=== PATIENT | male | born 1965 | race Caucasian/White ===

== ENCOUNTER 2021-04-02 12:16 | Inpatient (IN) ==
[2021-04-02] MEDS ORDERED: CIPRO IV 400 MG PREMIX* 400 MG/200 ML IV.SOLN. IV SCH (13:00)
[2021-04-02] MEDS ORDERED: NS 1000 ML 1,000 ML IV SCH (13:00)
[2021-04-02 13:14] LABS: BASOPHILS # (AUTO) 0.1 X10^3/uL (0.0-0.1); BASOPHILS % (AUTO) 0.4 % (0.2-1.0); EOSINOPHILS # (AUTO) 0.3 x10^3/uL (0.0-0.2); EOSINOPHILS % (AUTO) 1.3 % (0.9-2.9); HEMATOCRIT 42.2 % (42.0-54.0); HEMOGLOBIN 14.6 g/dL (13.5-18.0); LYMPHOCYTES # (AUTO) 2.5 X10^3/uL (1.3-2.9); LYMPHOCYTES % (AUTO) 12.3 % (21.0-51.0); MEAN CORPUSCULAR HEMOGLOBIN 30.6 pg (27.0-34.0); MEAN CORPUSCULAR HGB CONC 34.5 g/dL (33.0-35.0); MEAN CORPUSCULAR VOLUME 88.6 fL (80.0-100.0); MEAN PLATELET VOLUME 6.9 fL (7.4-11.0); MONOCYTES # (AUTO) 1.9 x10^3/uL (0.3-0.8); MONOCYTES % (AUTO) 9.4 % (0.0-13.0); NEUTROPHILS # (AUTO) 15.3 x10^3/uL (2.2-4.8); NEUTROPHILS % (AUTO) 76.6 % (42.0-75.0); PLATELET COUNT 312 X10^3/uL (150.0-450.0); RED BLOOD COUNT 4.76 X10^6/uL (4.7-6.0); RED CELL DISTRIBUTION WIDTH 13.3 % (11.6-16.5)
[2021-04-02 13:36] LABS: ALANINE AMINOTRANSFERASE 30 Units/L (12-78); ALBUMIN 2.9 g/dL (3.4-5.0); ALKALINE PHOSPHATASE 77 Units/L (46-116); ASPARTATE AMINO TRANSFERASE 16 Units/L (15-37); BLOOD UREA NITROGEN 16 mg/dL (7-18); CALCIUM 8.9 mg/dL (8.5-10.1); CHLORIDE 107 mmol/L (98-107); COR CA(FOR HYPOALB) 9.8 mg/dL (8.5-10.1); SODIUM 146 mmol/L (136-145); TOTAL PROTEIN 7.7 g/dL (6.4-8.2); eGFR NON BLACK RACES > 60 (>60)
[2021-04-02] MEDS: FLAGYL IV PREMIX 500 MG BAG 500 MG/100 ML BAG IV SCH ×2 (15:10→16:33)
--- NOTE | 2021-04-02 15:41 | RAD ---
HISTORYPRE-OP ABDOMINAL ABCESS, throat cancerSTUDYCHEST x-ray, 1 VIEWCOMPARISONNoneFINDINGSThe trachea is midline. The cardiac silhouette is unremarkable. No mediastinal widening.Mild bibasilar atelectasis is seen no pneumothorax or pleural effusion is seen.No acute bony abnormality is seen.IMPRESSIONMild bibasilar atelectasis.Electronically signed by: Davis Gonzalez (Apr 02, 2021 15:39:54)
[2021-04-02] MEDS: DILAUDID INJ IVP PRN ×2 (15:46→21:50)
[2021-04-02] MEDS: OFIRMEV IV 1000 MG VIAL 1,000 MG/100 ML VIAL IV PRN (15:50)
[2021-04-02] MEDS ORDERED: ZOSYN VIAL 3.375 GRAMS 3.375 G in NS 100 ML IV + SPIKE MINIBAG* 100 ML IV SCH ×2 (17:00→21:00)
[2021-04-02 17:48] VITALS: BMI 29.9
[2021-04-02] MEDS: D5 1/2 NS 1000 ML 1,000 ML IV SCH (18:56)
[2021-04-03] MEDS: FLAGYL IV PREMIX 500 MG BAG 500 MG/100 ML BAG IV SCH ×3 (01:59→17:00)
[2021-04-03] MEDS: DILAUDID INJ IVP PRN ×3 (02:50→12:30)
[2021-04-03] MEDS: OFIRMEV IV 1000 MG VIAL 1,000 MG/100 ML VIAL IV PRN (03:03)
[2021-04-03] MEDS: D5 1/2 NS 1000 ML 1,000 ML IV SCH ×2 (06:05→19:00)
[2021-04-03 06:21] LABS: BASOPHILS # (AUTO) 0.1 X10^3/uL (0.0-0.1); BASOPHILS % (AUTO) 0.4 % (0.2-1.0); EOSINOPHILS # (AUTO) 0.4 x10^3/uL (0.0-0.2); EOSINOPHILS % (AUTO) 2.2 % (0.9-2.9); HEMATOCRIT 40.6 % (42.0-54.0); HEMOGLOBIN 13.9 g/dL (13.5-18.0); LYMPHOCYTES % (AUTO) 10.8 % (21.0-51.0); MEAN CORPUSCULAR HEMOGLOBIN 30.6 pg (27.0-34.0); MEAN CORPUSCULAR HGB CONC 34.3 g/dL (33.0-35.0); MEAN CORPUSCULAR VOLUME 89.2 fL (80.0-100.0); MEAN PLATELET VOLUME 6.9 fL (7.4-11.0); MONOCYTES # (AUTO) 2.3 x10^3/uL (0.3-0.8); MONOCYTES % (AUTO) 12.6 % (0.0-13.0); NEUTROPHILS # (AUTO) 13.5 x10^3/uL (2.2-4.8); PLATELET COUNT 295 X10^3/uL (150.0-450.0); RED BLOOD COUNT 4.55 X10^6/uL (4.7-6.0); RED CELL DISTRIBUTION WIDTH 12.9 % (11.6-16.5); WHITE BLOOD COUNT 18.2 X10^3/uL (3.6-10.0)
[2021-04-03 06:39] LABS: ALANINE AMINOTRANSFERASE 19 Units/L (12-78); ALBUMIN 2.2 g/dL (3.4-5.0); ALKALINE PHOSPHATASE 74 Units/L (46-116); ASPARTATE AMINO TRANSFERASE 11 Units/L (15-37); BLOOD UREA NITROGEN 19 mg/dL (7-18); CALCIUM 8.4 mg/dL (8.5-10.1); CARBON DIOXIDE 29.4 mmol/L (21-32); CHLORIDE 106 mmol/L (98-107); COR CA(FOR HYPOALB) 9.8 mg/dL (8.5-10.1); COR NA(FOR HYPERGLY) 143 mmol/L (136-145); CREATININE 1.09 mg/dL (0.70-1.30); SODIUM 143 mmol/L (136-145); TOTAL PROTEIN 6.4 g/dL (6.4-8.2); eGFR NON BLACK RACES > 60 (>60)
[2021-04-03] MEDS ORDERED: MICRO K EXTEN CAP 10 MEQ PO PRN (06:42)
[2021-04-03] MEDS ORDERED: POTASSIUM CHL 60 MEQ/NS 0.45% 500 ML IV PRN (06:42)
[2021-04-03] MEDS ORDERED: POTASSIUM CHLORIDE LIQ 20 MEQ UDC PO PRN (06:42)
[2021-04-03] MEDS ORDERED: KLOR-CON PO PRN (06:42)
[2021-04-03] MEDS ORDERED: K-RIDER 10 MEQ/NS 100 ML 10 MEQ/100 ML BAG IV PRN (06:42)
[2021-04-03] MEDS ORDERED: K-DUR TAB 20 MEQ PO PRN (06:42)
[2021-04-03] MEDS ORDERED: NS 100 ML IV 100 ML ONE (11:11)
[2021-04-03] MEDS: ZOSYN VIAL 3.375 GRAMS 3.375 G in NS 100 ML IV + SPIKE MINIBAG* 100 ML IV SCH ×2 (11:31→22:04)
[2021-04-03] MEDS: POTASSIUM CHL 40 MEQ/NS 0.45% 500 ML IV PRN (11:33)
--- NOTE | 2021-04-03 12:25 | DR.UPDATE ---
H&P Update History and Physical Update: History and Physical reviewed and patient examined. Changes noted: NO Yes with the following: WAS A DIRECT ADMISSION TO THE HOSPITAL. HE PRESENTED TO THE OFFICE WITH COMPLAINTS OF ABDOMINAL PAIN AND FEVER. AN ABDOMEN/PELVIS CT WITH CONTRAST WAS OBTAINED AND REVEALED: Moderate-sized gas and fluid collection within the left lower quadrant measuring 4.5 x 5.8 x 3.4 cm is consistent with an abscess. Source of abscess is presumed to represent perforated diverticulitis given the sigmoid colonic bowel wall thickening and diverticular disease. Moderate inflammatory change and non- localizing free fluid within the lower abdomen and pelvis with circumferential bowel wall thickening of adjacent loops of distal small bowel is most consistent with peritonitis and reactive inflammatory change of the small bowel. No evidence of obstruction. Surgical consultation is needed. 1.4 cm hypoattenuating lesion within the left hepatic lobe has imaging features most consistent with a hemangioma. ON ARRIVAL TO THE HOSPITAL, HIS VITALS WERE 101.5-80-20-98%-139/78. LABS WERE OBTAINED. ABNORMAL LAB VALUES INCLUDE THE FOLLOWING: WBC 20.0, SODIUM 146, CARBON DIOXIDE 33.0, ALBUMIN 2.9, GLOBULIN 4.8. COVID, INFLUENZA, RSV NEGATIVE. BLOOD CULTURES WERE SET UP. A CHEST XRAY WAS OBTAINED AND REVEALED: MILD BIBASILAR ATELECTASIS. EKG REVEALED: SINUS RHYTHM WITH HR 73. HE WAS STARTED ON D51/2NS AT 50 ML/HR, ZOSYN 3.375G IV TID, FLAGYL 500MG IV Q8H, TYLENOL IV Q6H PRN, DILAUDID 1MG IV Q4H PRN, ZOFRAN 4MG IV Q4H PRN, PROTONIX 40MG IV BID, THE POTASSIUM AND MAGNESIUM PROTOCOLS. HIS HOME MEDICATIONS OF SYNTHROID, ANTIVERT, SINGULAIR, AND CRESTOR WERE RESUMED. WE WILL CONSULTED WITH , GENERAL SURGEON. HE RECOMMENDED TO TREAT WITH ANTIBIOTICS AND REPEAT THE CT ON FRIDAY. WE ARE IN AGREEMENT WITH PLANS. OTHERWISE, WE PLAN TO FOLLOW UP WITH AM LABS AND CONTINUE TO MONITOR. TIME SPENT ON CLINICAL ASSESSMENT, REVIEWING LABS AND IMAGING, DECISION MAKING, AND DOCUMENTATION GREATER THAN 75 MINUTES. H&P Reviewed: Yes Patient was examined?: Yes
[2021-04-03] MEDS: PROTONIX INJ 40 MG VIAL IVP SCH ×2 (12:30→20:53)
[2021-04-03] MEDS: SYNTHROID 112 mcg TAB PO SCH (14:19)
[2021-04-03] MEDS: SINGULAIR TAB 10 MG PO SCH (14:20)
--- NOTE | 2021-04-03 14:39 | DR.PROGNOT ---
Hospital Progress Notes - Progress Note for Day of: Progress Note Date: 04/03/21 - Chief Complaint Chief Complaint: slight improvement of abdomial pain . had low grade fever last night . no N,V ..no BM but passing flatus .. WBC is 18,2 - Past Medical Family Social History Past Med/Fam/Surg Hx: No changes since H&P Allergies: Allergies No Known Drug Allergies Allergy (Verified 04/02/21 15:22) - Review Of Systems ROS: No change since H&P - Vital Signs Vital Signs: Temperature 99.1 F Pulse Rate [Left Radial] 65 Respiratory Rate 20 Blood Pressure [Left Arm] 121/64 Blood Pressure 143/82 O2 Sat by Pulse Oximetry 98 - Physical Exam Oriented: Normal Eyes: Normal Ear: Normal Nose: Normal Throat: Normal Respiratory: Normal Cardiovascular: Normal GI:Auscultation: Normal GI:Palpation: Normal GI: Tenderness: Diffuse, LLQ (diffuse tenderness more around the LLQ with mild rebound .. BS hypoactive ..) Speech Pattern: Clear, Appropriate - Laboratory and Diagnostics Result Diagrams: 04/03/21 05:43 04/03/21 05:43 Labs: Laboratory WBC 18.2 X10^3/uL (3.6-10.0) H 04/03/21 05:43 RBC 4.55 X10^6/uL (4.7-6.0) L 04/03/21 05:43 Hgb 13.9 g/dL (13.5-18.0) 04/03/21 05:43 Hct 40.6 % (42.0-54.0) L 04/03/21 05:43 MCV 89.2 fL (80.0-100.0) 04/03/21 05:43 MCH 30.6 pg (27.0-34.0) 04/03/21 05:43 MCHC 34.3 g/dL (33.0-35.0) 04/03/21 05:43 RDW 12.9 % (11.6-16.5) 04/03/21 05:43 Plt Count 295 X10^3/uL (150.0-450.0) 04/03/21 05:43 MPV 6.9 fL (7.4-11.0) L 04/03/21 05:43 Neut % (Auto) 74.0 % (42.0-75.0) 04/03/21 05:43 Lymph % (Auto) 10.8 % (21.0-51.0) L 04/03/21 05:43 [place] % (Auto) 12.6 % (0.0-13.0) 04/03/21 05:43 Eos % (Auto) 2.2 % (0.9-2.9) 04/03/21 05:43 Baso % (Auto) 0.4 % (0.2-1.0) 04/03/21 05:43 Neut # (Auto) 13.5 x10^3/uL (2.2-4.8) H 04/03/21 05:43 Lymph # (Auto) 2.0 X10^3/uL (1.3-2.9) 04/03/21 05:43 [place] # (Auto) 2.3 x10^3/uL (0.3-0.8) H 04/03/21 05:43 Eos # (Auto) 0.4 x10^3/uL (0.0-0.2) H 04/03/21 05:43 Baso # (Auto) 0.1 X10^3/uL (0.0-0.1) 04/03/21 05:43 Absolute Nucleated RBC 0.1 /100WBC 04/03/21 05:43 PT 15.4 SECONDS (11.8-14.3) 04/02/21 18:10 INR Target Range - 04/02/21 18:10 INR 1.28 (0.8-1.3) 04/02/21 18:10 APTT 31.8 SECONDS (22.9-36.5) 04/02/21 18:10 PTT Comment - 04/02/21 18:10 Sodium 143 mmol/L (136-145) 04/03/21 05:43 Corrected Sodium 143 mmol/L (136-145) 04/03/21 05:43 Potassium 3.3 mmol/L (3.5-5.1) L 04/03/21 05:43 Chloride 106 mmol/L (98-107) 04/03/21 05:43 Carbon Dioxide 29.4 mmol/L (21-32) 04/03/21 05:43 BUN 19 mg/dL (7-18) H 04/03/21 05:43 Creatinine 1.09 mg/dL (0.70-1.30) 04/03/21 05:43 Est GFR (MDRD) Af Amer > 60 (>60) 04/03/21 05:43 Est GFR (MDRD) Non-Af > 60 (>60) 04/03/21 05:43 Glucose 111 mg/dL (65-99) H 04/03/21 05:43 Calcium 8.4 mg/dL (8.5-10.1) L 04/03/21 05:43 Corrected Calcium 9.8 mg/dL (8.5-10.1) 04/03/21 05:43 Magnesium 2.1 mg/dL (1.7-2.9) 04/03/21 05:43 Total Bilirubin 0.70 mg/dL (0.2-1.0) 04/03/21 05:43 AST 11 Units/L (15-37) L 04/03/21 05:43 ALT 19 Units/L (12-78) 04/03/21 05:43 Alkaline Phosphatase 74 Units/L (46-116) 04/03/21 05:43 Total Protein 6.4 g/dL (6.4-8.2) 04/03/21 05:43 Albumin 2.2 g/dL (3.4-5.0) L 04/03/21 05:43 Globulin 4.2 g/dL (2.5-4.5) 04/03/21 05:43 Albumin/Globulin Ratio 0.5 Ratio (1.1-2.1) L 04/03/21 05:43 SARS-CoV-2 (PCR) Negative (NEGATIVE) 04/02/21 13:00 Influenza Type A (PCR) Negative (NEGATIVE) 04/02/21 13:00 Influenza Type B (PCR) Negative (NEGATIVE) 04/02/21 13:00 RSV (PCR) Negative (NEGATIVE) 04/02/21 13:00 - Assessment and Plan 1: acute diverticulitis with abscess LLQ . localezed peritonitis .. same IN ATB , IVF , NPO with ICE chips for now ..
[2021-04-03] MEDS: CRESTOR TAB 10 MG PO SCH (20:53)
[2021-04-03] MEDS: ANTIVERT TAB 25 MG PO SCH (20:53)
[2021-04-04] MEDS: FLAGYL IV PREMIX 500 MG BAG 500 MG/100 ML BAG IV SCH ×3 (00:33→17:15)
[2021-04-04] MEDS: ZOSYN VIAL 3.375 GRAMS 3.375 G in NS 100 ML IV + SPIKE MINIBAG* 100 ML IV SCH ×3 (05:44→21:02)
[2021-04-04] MEDS: D5 1/2 NS 1000 ML 1,000 ML IV SCH ×3 (06:11→20:58)
[2021-04-04 06:44] LABS: BASOPHILS % (AUTO) 0.1 % (0.2-1.0); EOSINOPHILS % (AUTO) 0.2 % (0.9-2.9); HEMATOCRIT 42.3 % (42.0-54.0); HEMOGLOBIN 14.6 g/dL (13.5-18.0); LYMPHOCYTES # (AUTO) 1.7 X10^3/uL (1.3-2.9); LYMPHOCYTES % (AUTO) 9.4 % (21.0-51.0); MEAN CORPUSCULAR HEMOGLOBIN 30.5 pg (27.0-34.0); MEAN CORPUSCULAR HGB CONC 34.4 g/dL (33.0-35.0); MEAN CORPUSCULAR VOLUME 88.4 fL (80.0-100.0); MEAN PLATELET VOLUME 7.1 fL (7.4-11.0); MONOCYTES # (AUTO) 1.4 x10^3/uL (0.3-0.8); MONOCYTES % (AUTO) 7.6 % (0.0-13.0); NEUTROPHILS # (AUTO) 15.3 x10^3/uL (2.2-4.8); NEUTROPHILS % (AUTO) 82.7 % (42.0-75.0); PLATELET COUNT 321 X10^3/uL (150.0-450.0); RED BLOOD COUNT 4.79 X10^6/uL (4.7-6.0); RED CELL DISTRIBUTION WIDTH 12.9 % (11.6-16.5); WHITE BLOOD COUNT 18.5 X10^3/uL (3.6-10.0)
[2021-04-04 07:10] LABS: ALANINE AMINOTRANSFERASE 21 Units/L (12-78); ALKALINE PHOSPHATASE 85 Units/L (46-116); ASPARTATE AMINO TRANSFERASE 14 Units/L (15-37); BLOOD UREA NITROGEN 23 mg/dL (7-18); CALCIUM 9.2 mg/dL (8.5-10.1); CHLORIDE 108 mmol/L (98-107); COR NA(FOR HYPERGLY) 145 mmol/L (136-145); CREATININE 0.95 mg/dL (0.70-1.30); SODIUM 144 mmol/L (136-145); TOTAL PROTEIN 6.7 g/dL (6.4-8.2); eGFR NON BLACK RACES > 60 (>60)
[2021-04-04 07:25] LABS: ALBUMIN 1.8 g/dL (3.4-5.0)
[2021-04-04] MEDS: SYNTHROID 112 mcg TAB PO SCH (08:44)
[2021-04-04] MEDS: PROTONIX INJ 40 MG VIAL IVP SCH ×2 (08:44→20:58)
[2021-04-04] MEDS: SINGULAIR TAB 10 MG PO SCH (08:44)
--- NOTE | 2021-04-04 10:34 | DR.PROGNOT ---
Hospital Progress Notes - Progress Note for Day of: Progress Note Date: 04/04/21 - Chief Complaint Chief Complaint: comfortable today with moderate Lt side abdominal pain .. no nausea or vomiting ... no bowel movement. WBC 18.5.. BUN 23 /0.9.. Albumin 1.8 . temp 97.4 - Past Medical Family Social History Past Med/Fam/Surg Hx: No changes since H&P Allergies: Allergies No Known Drug Allergies Allergy (Verified 04/02/21 15:22) - Review Of Systems ROS: No change since H&P - Vital Signs Vital Signs: Temperature 97.4 F Pulse Rate [Left Radial] 50 Pulse Rate 74 Respiratory Rate 18 Blood Pressure [Right Arm] 128/72 Blood Pressure [Left Arm] 119/72 Blood Pressure 143/82 O2 Sat by Pulse Oximetry 96 - Physical Exam Oriented: Normal Eyes: Normal Ear: Normal Nose: Normal Throat: Normal Respiratory: Normal Cardiovascular: Normal GI:Auscultation: Normal GI: Tenderness: Diffuse, LLQ (diffuse tenderness more around the LLQ with mild rebound .. BS hypoactive ..) Speech Pattern: Clear, Appropriate - Laboratory and Diagnostics Result Diagrams: 04/04/21 05:40 04/04/21 05:40 Labs: Laboratory WBC 18.5 X10^3/uL (3.6-10.0) H 04/04/21 05:40 RBC 4.79 X10^6/uL (4.7-6.0) 04/04/21 05:40 Hgb 14.6 g/dL (13.5-18.0) 04/04/21 05:40 Hct 42.3 % (42.0-54.0) 04/04/21 05:40 MCV 88.4 fL (80.0-100.0) 04/04/21 05:40 MCH 30.5 pg (27.0-34.0) 04/04/21 05:40 MCHC 34.4 g/dL (33.0-35.0) 04/04/21 05:40 RDW 12.9 % (11.6-16.5) 04/04/21 05:40 Plt Count 321 X10^3/uL (150.0-450.0) 04/04/21 05:40 MPV 7.1 fL (7.4-11.0) L 04/04/21 05:40 Neut % (Auto) 82.7 % (42.0-75.0) H 04/04/21 05:40 Lymph % (Auto) 9.4 % (21.0-51.0) L 04/04/21 05:40 [place] % (Auto) 7.6 % (0.0-13.0) 04/04/21 05:40 Eos % (Auto) 0.2 % (0.9-2.9) L 04/04/21 05:40 Baso % (Auto) 0.1 % (0.2-1.0) L 04/04/21 05:40 Neut # (Auto) 15.3 x10^3/uL (2.2-4.8) H 04/04/21 05:40 Lymph # (Auto) 1.7 X10^3/uL (1.3-2.9) 04/04/21 05:40 [place] # (Auto) 1.4 x10^3/uL (0.3-0.8) H 04/04/21 05:40 Eos # (Auto) 0.0 x10^3/uL (0.0-0.2) 04/04/21 05:40 Baso # (Auto) 0.0 X10^3/uL (0.0-0.1) 04/04/21 05:40 Absolute Nucleated RBC 0.1 /100WBC 04/04/21 05:40 PT 15.4 SECONDS (11.8-14.3) 04/02/21 18:10 INR Target Range - 04/02/21 18:10 INR 1.28 (0.8-1.3) 04/02/21 18:10 APTT 31.8 SECONDS (22.9-36.5) 04/02/21 18:10 PTT Comment - 04/02/21 18:10 Sodium 144 mmol/L (136-145) 04/04/21 05:40 Corrected Sodium 145 mmol/L (136-145) 04/04/21 05:40 Potassium 4.8 mmol/L (3.5-5.1) 04/04/21 05:40 Chloride 108 mmol/L (98-107) H 04/04/21 05:40 Carbon Dioxide 28.0 mmol/L (21-32) 04/04/21 05:40 BUN 23 mg/dL (7-18) H 04/04/21 05:40 Creatinine 0.95 mg/dL (0.70-1.30) 04/04/21 05:40 Est GFR (MDRD) Af Amer > 60 (>60) 04/04/21 05:40 Est GFR (MDRD) Non-Af > 60 (>60) 04/04/21 05:40 Glucose 144 mg/dL (65-99) H 04/04/21 05:40 Calcium 9.2 mg/dL (8.5-10.1) 04/04/21 05:40 Corrected Calcium 11.0 mg/dL (8.5-10.1) H 04/04/21 05:40 Magnesium 2.1 mg/dL (1.7-2.9) 04/03/21 05:43 Total Bilirubin 0.40 mg/dL (0.2-1.0) 04/04/21 05:40 AST 14 Units/L (15-37) L 04/04/21 05:40 ALT 21 Units/L (12-78) 04/04/21 05:40 Alkaline Phosphatase 85 Units/L (46-116) 04/04/21 05:40 Total Protein 6.7 g/dL (6.4-8.2) 04/04/21 05:40 Albumin 1.8 g/dL (3.4-5.0) L 04/04/21 05:40 Globulin 4.9 g/dL (2.5-4.5) H 04/04/21 05:40 Albumin/Globulin Ratio 0.4 Ratio (1.1-2.1) L 04/04/21 05:40 SARS-CoV-2 (PCR) Negative (NEGATIVE) 04/02/21 13:00 Influenza Type A (PCR) Negative (NEGATIVE) 04/02/21 13:00 Influenza Type B (PCR) Negative (NEGATIVE) 04/02/21 13:00 RSV (PCR) Negative (NEGATIVE) 04/02/21 13:00 - Assessment and Plan 1: improving acute sigmoid diverticulitis with abscess LLQ . localezed peritonitis .. same IN ATB , IVF , NPO with ICE chips for now .. abdominal CT with . in Am
[2021-04-04] MEDS: CRESTOR TAB 10 MG PO SCH (20:58)
[2021-04-04] MEDS: ANTIVERT TAB 25 MG PO SCH (20:58)
[2021-04-04] MEDS: DILAUDID INJ IVP PRN (22:33)
[2021-04-05] MEDS: FLAGYL IV PREMIX 500 MG BAG 500 MG/100 ML BAG IV SCH ×3 (00:43→16:52)
[2021-04-05] MEDS: D5 1/2 NS 1000 ML 1,000 ML IV SCH (04:53)
[2021-04-05] MEDS: ZOSYN VIAL 3.375 GRAMS 3.375 G in NS 100 ML IV + SPIKE MINIBAG* 100 ML IV SCH (05:56)
[2021-04-05 06:51] LABS: BASOPHILS % (AUTO) 0.2 % (0.2-1.0); EOSINOPHILS # (AUTO) 0.3 x10^3/uL (0.0-0.2); EOSINOPHILS % (AUTO) 1.7 % (0.9-2.9); HEMATOCRIT 40.5 % (42.0-54.0); HEMOGLOBIN 13.8 g/dL (13.5-18.0); LYMPHOCYTES % (AUTO) 11.7 % (21.0-51.0); MEAN CORPUSCULAR HEMOGLOBIN 30.4 pg (27.0-34.0); MEAN CORPUSCULAR HGB CONC 34.1 g/dL (33.0-35.0); MEAN CORPUSCULAR VOLUME 89.2 fL (80.0-100.0); MONOCYTES # (AUTO) 1.8 x10^3/uL (0.3-0.8); MONOCYTES % (AUTO) 10.3 % (0.0-13.0); NEUTROPHILS # (AUTO) 13.1 x10^3/uL (2.2-4.8); NEUTROPHILS % (AUTO) 76.1 % (42.0-75.0); PLATELET COUNT 345 X10^3/uL (150.0-450.0); RED BLOOD COUNT 4.54 X10^6/uL (4.7-6.0); RED CELL DISTRIBUTION WIDTH 12.9 % (11.6-16.5); WHITE BLOOD COUNT 17.2 X10^3/uL (3.6-10.0)
[2021-04-05 07:11] LABS: ALANINE AMINOTRANSFERASE 20 Units/L (12-78); ALBUMIN 2.1 g/dL (3.4-5.0); ALKALINE PHOSPHATASE 96 Units/L (46-116); ASPARTATE AMINO TRANSFERASE 17 Units/L (15-37); BLOOD UREA NITROGEN 24 mg/dL (7-18); CALCIUM 8.3 mg/dL (8.5-10.1); CARBON DIOXIDE 29.9 mmol/L (21-32); CHLORIDE 108 mmol/L (98-107); COR CA(FOR HYPOALB) 9.8 mg/dL (8.5-10.1); SODIUM 144 mmol/L (136-145); TOTAL PROTEIN 6.1 g/dL (6.4-8.2); eGFR NON BLACK RACES > 60 (>60)
--- NOTE | 2021-04-05 08:53 | CT ---
HISTORYfollow up abscess throat cancerSTUDYABDOMEN/PELVIS WITH CONCOMPARISONCT abdomen and pelvis 04/02/2021TECHNIQUEMultiple CT axial images of the abdomen and pelvis were obtained with IV contrast. Coronal and sagittal images were reconstructed. Dose reduction techniques included Automated Exposure Control (AEC) and adjustment of mA and kV.FINDINGSGas fluid collection in lower midline and left abdomen is not significantly changed in size measuring about 5.5 cm in longest dimension. Surrounding edema indicates inflammation. The edema has increased.Wall thickening is noted in the adjacent bowel, including the sigmoid colon and the small bowel.A smaller fluid collection is noted in the mesentery of the small bowel and measures about 15 mm. This was also present on the prior study.Trace amount of free fluid in posterior pelvis. No pneumoperitoneum.There is no bowel obstruction. No hydronephrosis. No liver abscess.IMPRESSION1. Stable size anterior pelvic abscess and small mesenteric abscess2. More surrounding edema with secondary wall thickening in the sigmoid colon and small bowel3. No pneumoperitoneum or bowel obstructionElectronically signed by: Franc Garcia (Apr 05, 2021 08:50:24)
[2021-04-05] MEDS: PROTONIX INJ 40 MG VIAL IVP SCH ×2 (09:08→21:03)
[2021-04-05] MEDS: SINGULAIR TAB 10 MG PO SCH (09:08)
[2021-04-05] MEDS: SYNTHROID 112 mcg TAB PO SCH (09:08)
--- NOTE | 2021-04-05 10:15 | DR.PROGNOT ---
Hospital Progress Notes - Progress Note for Day of: Progress Note Date: 04/05/21 - Chief Complaint Chief Complaint: moderate Lt side abdominal pain .. no nausea or vomiting ... had small BM today . CT showed same stable 5 cm abscess with some edema of bowel patel. WBC 17.5.. BUN 24 /1.1.. Albumin 2 . temp 99.1 - Past Medical Family Social History Past Med/Fam/Surg Hx: No changes since H&P Allergies: Allergies No Known Drug Allergies Allergy (Verified 04/02/21 15:22) - Review Of Systems ROS: No change since H&P - Vital Signs Vital Signs: Temperature 99.1 F Pulse Rate [Left Radial] 70 Pulse Rate 74 Respiratory Rate 20 Blood Pressure [Right Arm] 137/76 Blood Pressure [Left Arm] 129/68 Blood Pressure 143/82 O2 Sat by Pulse Oximetry 94 - Physical Exam Oriented: Normal Eyes: Normal Ear: Normal Nose: Normal Throat: Normal Respiratory: Normal Cardiovascular: Normal GI:Auscultation: Normal GI:Palpation: Normal GI: Tenderness: Diffuse, LLQ (diffuse tenderness more around the LLQ with mild rebound .. BS hypoactive ..) Speech Pattern: Clear, Appropriate - Laboratory and Diagnostics Result Diagrams: 04/05/21 06:00 04/05/21 06:00 Labs: 04/02/21 13:02 Blood Blood Culture - Preliminary 04/02/21 12:50 Blood Blood Culture - Preliminary Laboratory WBC 17.2 X10^3/uL (3.6-10.0) H 04/05/21 06:00 RBC 4.54 X10^6/uL (4.7-6.0) L 04/05/21 06:00 Hgb 13.8 g/dL (13.5-18.0) 04/05/21 06:00 Hct 40.5 % (42.0-54.0) L 04/05/21 06:00 MCV 89.2 fL (80.0-100.0) 04/05/21 06:00 MCH 30.4 pg (27.0-34.0) 04/05/21 06:00 MCHC 34.1 g/dL (33.0-35.0) 04/05/21 06:00 RDW 12.9 % (11.6-16.5) 04/05/21 06:00 Plt Count 345 X10^3/uL (150.0-450.0) 04/05/21 06:00 MPV 7.0 fL (7.4-11.0) L 04/05/21 06:00 Neut % (Auto) 76.1 % (42.0-75.0) H 04/05/21 06:00 Lymph % (Auto) 11.7 % (21.0-51.0) L 04/05/21 06:00 [place] % (Auto) 10.3 % (0.0-13.0) 04/05/21 06:00 Eos % (Auto) 1.7 % (0.9-2.9) 04/05/21 06:00 Baso % (Auto) 0.2 % (0.2-1.0) 04/05/21 06:00 Neut # (Auto) 13.1 x10^3/uL (2.2-4.8) H 04/05/21 06:00 Lymph # (Auto) 2.0 X10^3/uL (1.3-2.9) 04/05/21 06:00 [place] # (Auto) 1.8 x10^3/uL (0.3-0.8) H 04/05/21 06:00 Eos # (Auto) 0.3 x10^3/uL (0.0-0.2) H 04/05/21 06:00 Baso # (Auto) 0.0 X10^3/uL (0.0-0.1) 04/05/21 06:00 Absolute Nucleated RBC 0.0 /100WBC 04/05/21 06:00 PT 15.4 SECONDS (11.8-14.3) 04/02/21 18:10 INR Target Range - 04/02/21 18:10 INR 1.28 (0.8-1.3) 04/02/21 18:10 APTT 31.8 SECONDS (22.9-36.5) 04/02/21 18:10 PTT Comment - 04/02/21 18:10 Sodium 144 mmol/L (136-145) 04/05/21 06:00 Corrected Sodium TNP 04/05/21 06:00 Potassium 3.7 mmol/L (3.5-5.1) 04/05/21 06:00 Chloride 108 mmol/L (98-107) H 04/05/21 06:00 Carbon Dioxide 29.9 mmol/L (21-32) 04/05/21 06:00 BUN 24 mg/dL (7-18) H 04/05/21 06:00 Creatinine 1.10 mg/dL (0.70-1.30) 04/05/21 06:00 Est GFR (MDRD) Af Amer > 60 (>60) 04/05/21 06:00 Est GFR (MDRD) Non-Af > 60 (>60) 04/05/21 06:00 Glucose 91 mg/dL (65-99) 04/05/21 06:00 Calcium 8.3 mg/dL (8.5-10.1) L 04/05/21 06:00 Corrected Calcium 9.8 mg/dL (8.5-10.1) 04/05/21 06:00 Magnesium 2.1 mg/dL (1.7-2.9) 04/03/21 05:43 Total Bilirubin 0.40 mg/dL (0.2-1.0) 04/05/21 06:00 AST 17 Units/L (15-37) 04/05/21 06:00 ALT 20 Units/L (12-78) 04/05/21 06:00 Alkaline Phosphatase 96 Units/L (46-116) 04/05/21 06:00 Total Protein 6.1 g/dL (6.4-8.2) L 04/05/21 06:00 Albumin 2.1 g/dL (3.4-5.0) L 04/05/21 06:00 Globulin 4.0 g/dL (2.5-4.5) 04/05/21 06:00 Albumin/Globulin Ratio 0.5 Ratio (1.1-2.1) L 04/05/21 06:00 SARS-CoV-2 (PCR) Negative (NEGATIVE) 04/02/21 13:00 Influenza Type A (PCR) Negative (NEGATIVE) 04/02/21 13:00 Influenza Type B (PCR) Negative (NEGATIVE) 04/02/21 13:00 RSV (PCR) Negative (NEGATIVE) 04/02/21 13:00 - Assessment and Plan 1: acute sigmoid diverticulitis with abscess LLQ . localezed peritonitis .. same IN ATB , IVF ,. on clear liquid ..
--- NOTE | 2021-04-05 12:09 | PCM.PROG ---
Progress Note - Progress Note for Day of Date of Exam: 04/04/21 - Subjective Subjective: WAS ADMITTED FOR TREATMENT OF AN ANTERIOR PELVIC ABSCESS. TODAY, HE IS ALERT AND ORIENTED, LYING IN BED ON MORNING ROUNDS. HE CONTINUES WITH COMPLAINTS OF LEFT LOWER QUADRANT PAIN. ON EXAMINATION, HEART IS REGULAR IN RATE AND RHYTHM. BILATERAL LUNGS ARE CLEAR TO AUSCULTATION. ABDOMEN IS ROUND, SOFT, AND NOTED WITH LEFT SIDED ABDOMINAL TENDERNESS. STAFF REPORTS THAT HE WAS AFEBRILE THROUGHOUT THE NIGHT. HIS VITALS THIS MORNING ARE: 97.9-60-18-97%-125/72. LABS WERE OBTAINED. ABNORMAL LAB VALUES INCLUDE THE FOLLOWING: WBC 18.5, CHLORIDE 108, BUN 23, GLUCOSE 144, AST 14, ALBUMIN 1.8, GLOBULIN 4.9. BLOOD CULTURES ARE PENDING. HE IS CURRENTLY RECEIVING D51/2NS AT 50 ML/HR, ZOSYN 3.375G IV TID, FLAGYL 500MG IV Q8H, TYLENOL IV Q6H PRN, DILAUDID 1MG IV Q4H PRN, ZOFRAN 4MG IV Q4H PRN, PROTONIX 40MG IV BID, THE POTASSIUM AND MAGNESIUM PROTOCOLS. HIS HOME MEDICATIONS OF SYNTHROID, ANTIVERT, SINGULAIR, AND CRESTOR WERE RESUMED. , GENERAL SURGEON IS FOLLOWING PATIENT AND RECOMMENDS TO CONTINUE WITH CURRENT PLAN OF CARE TODAY. WE WILL REPEAT AN ABDOMEN/PELVIS CT WITH CONTRAST IN THE MORNING. OTHERWISE, WE WILL FOLLOW UP WITH AM LABS AND CONTINUE TO MONITOR. TIME SPENT ON CLINICAL ASSESSMENT, REVIEWING LABS AND IMAGING, DECISION MAKING, AND DOCUMENTATION GREATER THAN 45 MINUTES. - Past Medical Family Social History Past Med/Fam/Surg Hx: No changes since H&P Allergies: Allergies No Known Drug Allergies Allergy (Verified 04/02/21 15:22) - Review of Systems ROS: No change since H&P - Vital Signs and I&O's Vital Signs: Temperature 99.1 F Pulse Rate [Left Radial] 70 Pulse Rate 74 Respiratory Rate 20 Blood Pressure [Right Arm] 137/76 Blood Pressure [Left Arm] 129/68 Blood Pressure 143/82 O2 Sat by Pulse Oximetry 94 Intake and Output: Intake & Output 04/03/21 04/04/21 04/05/21 04/06/21 11:59 11:59 11:59 11:59 Intake Total 1554 / 1554 1988 Output Total 125 / 125 Balance 1429 / 1429 1988 - Physical Exam Oriented: Normal Eyes: Normal Ear: Normal Nose: Normal Throat: Normal Respiratory: Normal Cardiovascular: Normal Auscultation: Bowel Sounds: Normal Tenderness: Diffuse, LLQ (diffuse tenderness more around the LLQ with mild rebound .. BS hypoactive ..) Skin: Normal Musculoskeletal: Normal Psychiatric: Normal Mood Description: Calm Affect: Normal Speech Pattern: Clear, Appropriate - Laboratory and Diagnostics Result Diagrams: 04/05/21 06:00 04/05/21 06:00 Labs: 04/02/21 13:02 Blood Blood Culture - Preliminary 04/02/21 12:50 Blood Blood Culture - Preliminary Laboratory WBC 17.2 X10^3/uL (3.6-10.0) H 04/05/21 06:00 RBC 4.54 X10^6/uL (4.7-6.0) L 04/05/21 06:00 Hgb 13.8 g/dL (13.5-18.0) 04/05/21 06:00 Hct 40.5 % (42.0-54.0) L 04/05/21 06:00 MCV 89.2 fL (80.0-100.0) 04/05/21 06:00 MCH 30.4 pg (27.0-34.0) 04/05/21 06:00 MCHC 34.1 g/dL (33.0-35.0) 04/05/21 06:00 RDW 12.9 % (11.6-16.5) 04/05/21 06:00 Plt Count 345 X10^3/uL (150.0-450.0) 04/05/21 06:00 MPV 7.0 fL (7.4-11.0) L 04/05/21 06:00 Neut % (Auto) 76.1 % (42.0-75.0) H 04/05/21 06:00 Lymph % (Auto) 11.7 % (21.0-51.0) L 04/05/21 06:00 [place] % (Auto) 10.3 % (0.0-13.0) 04/05/21 06:00 Eos % (Auto) 1.7 % (0.9-2.9) 04/05/21 06:00 Baso % (Auto) 0.2 % (0.2-1.0) 04/05/21 06:00 Neut # (Auto) 13.1 x10^3/uL (2.2-4.8) H 04/05/21 06:00 Lymph # (Auto) 2.0 X10^3/uL (1.3-2.9) 04/05/21 06:00 [place] # (Auto) 1.8 x10^3/uL (0.3-0.8) H 04/05/21 06:00 Eos # (Auto) 0.3 x10^3/uL (0.0-0.2) H 04/05/21 06:00 Baso # (Auto) 0.0 X10^3/uL (0.0-0.1) 04/05/21 06:00 Absolute Nucleated RBC 0.0 /100WBC 04/05/21 06:00 PT 15.4 SECONDS (11.8-14.3) 04/02/21 18:10 INR Target Range - 04/02/21 18:10 INR 1.28 (0.8-1.3) 04/02/21 18:10 APTT 31.8 SECONDS (22.9-36.5) 04/02/21 18:10 PTT Comment - 04/02/21 18:10 Sodium 144 mmol/L (136-145) 04/05/21 06:00 Corrected Sodium TNP 04/05/21 06:00 Potassium 3.7 mmol/L (3.5-5.1) 04/05/21 06:00 Chloride 108 mmol/L (98-107) H 04/05/21 06:00 Carbon Dioxide 29.9 mmol/L (21-32) 04/05/21 06:00 BUN 24 mg/dL (7-18) H 04/05/21 06:00 Creatinine 1.10 mg/dL (0.70-1.30) 04/05/21 06:00 Est GFR (MDRD) Af Amer > 60 (>60) 04/05/21 06:00 Est GFR (MDRD) Non-Af > 60 (>60) 04/05/21 06:00 Glucose 91 mg/dL (65-99) 04/05/21 06:00 Calcium 8.3 mg/dL (8.5-10.1) L 04/05/21 06:00 Corrected Calcium 9.8 mg/dL (8.5-10.1) 04/05/21 06:00 Magnesium 2.1 mg/dL (1.7-2.9) 04/03/21 05:43 Total Bilirubin 0.40 mg/dL (0.2-1.0) 04/05/21 06:00 AST 17 Units/L (15-37) 04/05/21 06:00 ALT 20 Units/L (12-78) 04/05/21 06:00 Alkaline Phosphatase 96 Units/L (46-116) 04/05/21 06:00 Total Protein 6.1 g/dL (6.4-8.2) L 04/05/21 06:00 Albumin 2.1 g/dL (3.4-5.0) L 04/05/21 06:00 Globulin 4.0 g/dL (2.5-4.5) 04/05/21 06:00 Albumin/Globulin Ratio 0.5 Ratio (1.1-2.1) L 04/05/21 06:00 SARS-CoV-2 (PCR) Negative (NEGATIVE) 04/02/21 13:00 Influenza Type A (PCR) Negative (NEGATIVE) 04/02/21 13:00 Influenza Type B (PCR) Negative (NEGATIVE) 04/02/21 13:00 RSV (PCR) Negative (NEGATIVE) 04/02/21 13:00 - Plan (1) Intra-abdominal abscess Status: Acute Plan: D51/2NS AT 50 ML/HR, ZOSYN 3.375G IV TID, FLAGYL 500MG IV Q8H, TYLENOL IV Q6H PRN, DILAUDID 1MG IV Q4H PRN, ZOFRAN 4MG IV Q4H PRN, PROTONIX 40MG IV BID, THE POTASSIUM AND MAGNESIUM PROTOCOLS. HIS HOME MEDICATIONS OF SYNTHROID, ANTIVERT, SINGULAIR, AND CRESTOR WERE RESUMED. REPEAT CT IN AM
--- NOTE | 2021-04-05 12:47 | PCM.PROG ---
Progress Note - Progress Note for Day of Date of Exam: 04/05/21 - Subjective Subjective: WAS ADMITTED FOR TREATMENT OF ACUTE SIGMOID DIVERTICULITIS AND AN ANTERIOR PELVIC ABSCESS. TODAY, HE IS ALERT AND ORIENTED, LYING IN BED ON MORNING ROUNDS. HE CONTINUES WITH COMPLAINTS OF LEFT LOWER QUADRANT PAIN. ON EXAMINATION, HEART IS REGULAR IN RATE AND RHYTHM. BILATERAL LUNGS ARE CLEAR TO AUSCULTATION. ABDOMEN IS ROUND, SOFT, AND NOTED WITH LEFT SIDED ABDOMINAL TENDERNESS. STAFF REPORTS THAT HE WAS AFEBRILE THROUGHOUT THE NIGHT. HIS VITALS THIS MORNING ARE: 99.1-70-20-94%-129/68. LABS WERE OBTAINED. ABNORMAL LAB VALUES INCLUDE THE FOLLOWING: WBC 17.2, RBC 4.54, HCT 40.5, CHLORIDE 108, BUN 24, CALCIUM 8.3, TOTAL PROTEIN 6.1, ALBUMIN 2.1. BLOOD CULTURES ARE PENDING. ABDOMEN/PELVIS CT WITH CONTRAST WAS REPEATED THIS MORNING AND REVEALED: 1. Stable size anterior pelvic abscess and small mesenteric abscess 2. More surrounding edema with secondary wall thickening in the sigmoid colon and small bowel 3. No pneumoperitoneum or bowel obstruction. HE IS CURRENTLY RECEIVING D51/2NS AT 50 ML/HR, ZOSYN 3.375G IV TID, FLAGYL 500MG IV Q8H, TYLENOL IV Q6H PRN, DILAUDID 1MG IV Q4H PRN, ZOFRAN 4MG IV Q4H PRN, PROTONIX 40MG IV BID, THE POTASSIUM AND MAGNESIUM PROTOCOLS. HIS HOME MEDICATIONS OF SYNTHROID, ANTIVERT, SINGULAIR, AND CRESTOR WERE RESUMED. , GENERAL SURGEON IS FOLLOWING PATIENT AND RECOMMENDS TO CONTINUE WITH CURRENT PLAN OF CARE TODAY. WE WILL INCREASE HIS ZOSYN TO 4.5G IV TID. OTHERWISE, WE WILL FOLLOW UP WITH AM LABS AND CONTINUE TO MONITOR. TIME SPENT ON CLINICAL ASSESSMENT, REVIEWING LABS AND IMAGING, DECISION MAKING, AND DOCUMENTATION GREATER THAN 45 MINUTES. - Past Medical Family Social History Past Med/Fam/Surg Hx: No changes since H&P Allergies: Allergies No Known Drug Allergies Allergy (Verified 04/02/21 15:22) - Review of Systems ROS: No change since H&P - Vital Signs and I&O's Vital Signs: Temperature 98.0 F Pulse Rate [Left Radial] 80 Pulse Rate 74 Respiratory Rate 20 Blood Pressure [Right Arm] 137/76 Blood Pressure [Left Arm] 120/62 Blood Pressure 143/82 O2 Sat by Pulse Oximetry 98 Intake and Output: Intake & Output 04/03/21 04/04/21 04/05/21 04/06/21 11:59 11:59 11:59 11:59 Intake Total 1554 / 1554 1988 Output Total 125 / 125 Balance 1429 / 1429 1988 - Physical Exam Oriented: Normal Eyes: Normal Ear: Normal Nose: Normal Throat: Normal Respiratory: Normal Cardiovascular: Normal : Normal Auscultation: Bowel Sounds: Normal Palpation: Normal Tenderness: Diffuse, LLQ (diffuse tenderness more around the LLQ with mild rebound .. BS hypoactive ..) Skin: Normal Musculoskeletal: Normal Psychiatric: Normal Mood Description: Calm Affect: Normal Speech Pattern: Clear, Appropriate - Laboratory and Diagnostics Result Diagrams: 04/05/21 06:00 04/05/21 06:00 Labs: 04/02/21 13:02 Blood Blood Culture - Preliminary 04/02/21 12:50 Blood Blood Culture - Preliminary Laboratory WBC 17.2 X10^3/uL (3.6-10.0) H 04/05/21 06:00 RBC 4.54 X10^6/uL (4.7-6.0) L 04/05/21 06:00 Hgb 13.8 g/dL (13.5-18.0) 04/05/21 06:00 Hct 40.5 % (42.0-54.0) L 04/05/21 06:00 MCV 89.2 fL (80.0-100.0) 04/05/21 06:00 MCH 30.4 pg (27.0-34.0) 04/05/21 06:00 MCHC 34.1 g/dL (33.0-35.0) 04/05/21 06:00 RDW 12.9 % (11.6-16.5) 04/05/21 06:00 Plt Count 345 X10^3/uL (150.0-450.0) 04/05/21 06:00 MPV 7.0 fL (7.4-11.0) L 04/05/21 06:00 Neut % (Auto) 76.1 % (42.0-75.0) H 04/05/21 06:00 Lymph % (Auto) 11.7 % (21.0-51.0) L 04/05/21 06:00 [place] % (Auto) 10.3 % (0.0-13.0) 04/05/21 06:00 Eos % (Auto) 1.7 % (0.9-2.9) 04/05/21 06:00 Baso % (Auto) 0.2 % (0.2-1.0) 04/05/21 06:00 Neut # (Auto) 13.1 x10^3/uL (2.2-4.8) H 04/05/21 06:00 Lymph # (Auto) 2.0 X10^3/uL (1.3-2.9) 04/05/21 06:00 [place] # (Auto) 1.8 x10^3/uL (0.3-0.8) H 04/05/21 06:00 Eos # (Auto) 0.3 x10^3/uL (0.0-0.2) H 04/05/21 06:00 Baso # (Auto) 0.0 X10^3/uL (0.0-0.1) 04/05/21 06:00 Absolute Nucleated RBC 0.0 /100WBC 04/05/21 06:00 PT 15.4 SECONDS (11.8-14.3) 04/02/21 18:10 INR Target Range - 04/02/21 18:10 INR 1.28 (0.8-1.3) 04/02/21 18:10 APTT 31.8 SECONDS (22.9-36.5) 04/02/21 18:10 PTT Comment - 04/02/21 18:10 Sodium 144 mmol/L (136-145) 04/05/21 06:00 Corrected Sodium TNP 04/05/21 06:00 Potassium 3.7 mmol/L (3.5-5.1) 04/05/21 06:00 Chloride 108 mmol/L (98-107) H 04/05/21 06:00 Carbon Dioxide 29.9 mmol/L (21-32) 04/05/21 06:00 BUN 24 mg/dL (7-18) H 04/05/21 06:00 Creatinine 1.10 mg/dL (0.70-1.30) 04/05/21 06:00 Est GFR (MDRD) Af Amer > 60 (>60) 04/05/21 06:00 Est GFR (MDRD) Non-Af > 60 (>60) 04/05/21 06:00 Glucose 91 mg/dL (65-99) 04/05/21 06:00 Calcium 8.3 mg/dL (8.5-10.1) L 04/05/21 06:00 Corrected Calcium 9.8 mg/dL (8.5-10.1) 04/05/21 06:00 Magnesium 2.1 mg/dL (1.7-2.9) 04/03/21 05:43 Total Bilirubin 0.40 mg/dL (0.2-1.0) 04/05/21 06:00 AST 17 Units/L (15-37) 04/05/21 06:00 ALT 20 Units/L (12-78) 04/05/21 06:00 Alkaline Phosphatase 96 Units/L (46-116) 04/05/21 06:00 Total Protein 6.1 g/dL (6.4-8.2) L 04/05/21 06:00 Albumin 2.1 g/dL (3.4-5.0) L 04/05/21 06:00 Globulin 4.0 g/dL (2.5-4.5) 04/05/21 06:00 Albumin/Globulin Ratio 0.5 Ratio (1.1-2.1) L 04/05/21 06:00 SARS-CoV-2 (PCR) Negative (NEGATIVE) 04/02/21 13:00 Influenza Type A (PCR) Negative (NEGATIVE) 04/02/21 13:00 Influenza Type B (PCR) Negative (NEGATIVE) 04/02/21 13:00 RSV (PCR) Negative (NEGATIVE) 04/02/21 13:00 - Plan (1) Intra-abdominal abscess Status: Acute Plan: D51/2NS AT 50 ML/HR, ZOSYN 3.375G IV TID, FLAGYL 500MG IV Q8H, TYLENOL IV Q6H PRN, DILAUDID 1MG IV Q4H PRN, ZOFRAN 4MG IV Q4H PRN, PROTONIX 40MG IV BID, THE POTASSIUM AND MAGNESIUM PROTOCOLS. RESUME HOME MEDS (2) Sigmoid diverticulitis Status: Acute
[2021-04-05] MEDS: ZOSYN VIAL 4.5 GRAMS 4.5 G in NS 100 ML IV + SPIKE MINIBAG* 100 ML IV SCH ×2 (13:09→21:04)
[2021-04-05] MEDS: ANTIVERT TAB 25 MG PO SCH (21:02)
[2021-04-05] MEDS: CRESTOR TAB 10 MG PO SCH (21:03)
[2021-04-05] MEDS: DILAUDID INJ IVP PRN (21:30)
[2021-04-06] MEDS: D5 1/2 NS 1000 ML 1,000 ML IV SCH ×3 (00:35→13:31)
[2021-04-06] MEDS: FLAGYL IV PREMIX 500 MG BAG 500 MG/100 ML BAG IV SCH ×3 (00:36→16:35)
[2021-04-06] MEDS: DILAUDID INJ IVP PRN ×2 (04:05→21:59)
[2021-04-06] MEDS: ZOSYN VIAL 4.5 GRAMS 4.5 G in NS 100 ML IV + SPIKE MINIBAG* 100 ML IV SCH ×3 (05:57→21:06)
[2021-04-06 06:20] LABS: BASOPHILS % (AUTO) 0.2 % (0.2-1.0); EOSINOPHILS # (AUTO) 0.2 x10^3/uL (0.0-0.2); EOSINOPHILS % (AUTO) 1.3 % (0.9-2.9); HEMATOCRIT 40.3 % (42.0-54.0); HEMOGLOBIN 13.7 g/dL (13.5-18.0); LYMPHOCYTES # (AUTO) 2.3 X10^3/uL (1.3-2.9); MEAN CORPUSCULAR HEMOGLOBIN 30.3 pg (27.0-34.0); MEAN CORPUSCULAR HGB CONC 34.1 g/dL (33.0-35.0); MEAN CORPUSCULAR VOLUME 88.9 fL (80.0-100.0); MEAN PLATELET VOLUME 6.6 fL (7.4-11.0); MONOCYTES # (AUTO) 2.1 x10^3/uL (0.3-0.8); MONOCYTES % (AUTO) 10.9 % (0.0-13.0); NEUTROPHILS # (AUTO) 14.5 x10^3/uL (2.2-4.8); NEUTROPHILS % (AUTO) 75.6 % (42.0-75.0); PLATELET COUNT 341 X10^3/uL (150.0-450.0); RED BLOOD COUNT 4.53 X10^6/uL (4.7-6.0); WHITE BLOOD COUNT 19.2 X10^3/uL (3.6-10.0)
[2021-04-06 06:56] LABS: ALANINE AMINOTRANSFERASE 21 Units/L (12-78); ALBUMIN 2.1 g/dL (3.4-5.0); ALKALINE PHOSPHATASE 78 Units/L (46-116); ASPARTATE AMINO TRANSFERASE 18 Units/L (15-37); BLOOD UREA NITROGEN 13 mg/dL (7-18); CALCIUM 8.1 mg/dL (8.5-10.1); CARBON DIOXIDE 29.5 mmol/L (21-32); CHLORIDE 102 mmol/L (98-107); COR CA(FOR HYPOALB) 9.6 mg/dL (8.5-10.1); CREATININE 1.17 mg/dL (0.70-1.30); SODIUM 137 mmol/L (136-145); TOTAL PROTEIN 6.1 g/dL (6.4-8.2); eGFR NON BLACK RACES > 60 (>60)
[2021-04-06] MEDS: SYNTHROID 112 mcg TAB PO SCH (08:54)
[2021-04-06] MEDS: SINGULAIR TAB 10 MG PO SCH (08:54)
[2021-04-06] MEDS: PROTONIX INJ 40 MG VIAL IVP SCH ×2 (08:54→21:05)
[2021-04-06] MEDS: OFIRMEV IV 1000 MG VIAL 1,000 MG/100 ML VIAL IV PRN (15:31)
--- NOTE | 2021-04-06 17:12 | DR.PROGNOT ---
Hospital Progress Notes - Progress Note for Day of: Progress Note Date: 04/06/21 - Chief Complaint Chief Complaint: moderate Lt side abdominal pain .. no nausea or vomiting ... having low grade fever and WBC 19.2.. - Past Medical Family Social History Past Med/Fam/Surg Hx: No changes since H&P Allergies: Allergies No Known Drug Allergies Allergy (Verified 04/02/21 15:22) - Review Of Systems ROS: No change since H&P - Vital Signs Vital Signs: Temperature 100.1 F Pulse Rate [Left Radial] 70 Pulse Rate 74 Respiratory Rate 17 Blood Pressure [Right Arm] 129/67 Blood Pressure [Left Arm] 109/59 Blood Pressure 143/82 O2 Sat by Pulse Oximetry 97 - Physical Exam Oriented: Normal Eyes: Normal Ear: Normal Nose: Normal Throat: Normal Respiratory: Normal Cardiovascular: Normal : Normal GI:Auscultation: Normal GI:Palpation: Normal GI: Tenderness: Diffuse, LLQ (diffuse tenderness more around the LLQ with mild rebound .. BS hypoactive ..) Skin: Normal Musculoskeletal: Normal Psychiatric: Normal Mood Description: Calm Affect: Normal Speech Pattern: Clear, Appropriate - Laboratory and Diagnostics Result Diagrams: 04/06/21 05:32 04/06/21 05:32 Labs: 04/02/21 13:02 Blood Blood Culture - Preliminary 04/02/21 12:50 Blood Blood Culture - Preliminary Laboratory WBC 19.2 X10^3/uL (3.6-10.0) H 04/06/21 05:32 RBC 4.53 X10^6/uL (4.7-6.0) L 04/06/21 05:32 Hgb 13.7 g/dL (13.5-18.0) 04/06/21 05:32 Hct 40.3 % (42.0-54.0) L 04/06/21 05:32 MCV 88.9 fL (80.0-100.0) 04/06/21 05:32 MCH 30.3 pg (27.0-34.0) 04/06/21 05:32 MCHC 34.1 g/dL (33.0-35.0) 04/06/21 05:32 RDW 13.0 % (11.6-16.5) 04/06/21 05:32 Plt Count 341 X10^3/uL (150.0-450.0) 04/06/21 05:32 MPV 6.6 fL (7.4-11.0) L 04/06/21 05:32 Neut % (Auto) 75.6 % (42.0-75.0) H 04/06/21 05:32 Lymph % (Auto) 12.0 % (21.0-51.0) L 04/06/21 05:32 [place] % (Auto) 10.9 % (0.0-13.0) 04/06/21 05:32 Eos % (Auto) 1.3 % (0.9-2.9) 04/06/21 05:32 Baso % (Auto) 0.2 % (0.2-1.0) 04/06/21 05:32 Neut # (Auto) 14.5 x10^3/uL (2.2-4.8) H 04/06/21 05:32 Lymph # (Auto) 2.3 X10^3/uL (1.3-2.9) 04/06/21 05:32 [place] # (Auto) 2.1 x10^3/uL (0.3-0.8) H 04/06/21 05:32 Eos # (Auto) 0.2 x10^3/uL (0.0-0.2) 04/06/21 05:32 Baso # (Auto) 0.0 X10^3/uL (0.0-0.1) 04/06/21 05:32 Absolute Nucleated RBC 0.0 /100WBC 04/06/21 05:32 PT 15.4 SECONDS (11.8-14.3) 04/02/21 18:10 INR Target Range - 04/02/21 18:10 INR 1.28 (0.8-1.3) 04/02/21 18:10 APTT 31.8 SECONDS (22.9-36.5) 04/02/21 18:10 PTT Comment - 04/02/21 18:10 Sodium 137 mmol/L (136-145) 04/06/21 05:32 Corrected Sodium TNP 04/06/21 05:32 Potassium 3.8 mmol/L (3.5-5.1) 04/06/21 05:32 Chloride 102 mmol/L (98-107) 04/06/21 05:32 Carbon Dioxide 29.5 mmol/L (21-32) 04/06/21 05:32 BUN 13 mg/dL (7-18) 04/06/21 05:32 Creatinine 1.17 mg/dL (0.70-1.30) 04/06/21 05:32 Est GFR (MDRD) Af Amer > 60 (>60) 04/06/21 05:32 Est GFR (MDRD) Non-Af > 60 (>60) 04/06/21 05:32 Glucose 100 mg/dL (65-99) H 04/06/21 05:32 Calcium 8.1 mg/dL (8.5-10.1) L 04/06/21 05:32 Corrected Calcium 9.6 mg/dL (8.5-10.1) 04/06/21 05:32 Magnesium 2.1 mg/dL (1.7-2.9) 04/03/21 05:43 Total Bilirubin 0.40 mg/dL (0.2-1.0) 04/06/21 05:32 AST 18 Units/L (15-37) 04/06/21 05:32 ALT 21 Units/L (12-78) 04/06/21 05:32 Alkaline Phosphatase 78 Units/L (46-116) 04/06/21 05:32 Total Protein 6.1 g/dL (6.4-8.2) L 04/06/21 05:32 Albumin 2.1 g/dL (3.4-5.0) L 04/06/21 05:32 Globulin 4.0 g/dL (2.5-4.5) 04/06/21 05:32 Albumin/Globulin Ratio 0.5 Ratio (1.1-2.1) L 04/06/21 05:32 SARS-CoV-2 (PCR) Negative (NEGATIVE) 04/02/21 13:00 Influenza Type A (PCR) Negative (NEGATIVE) 04/02/21 13:00 Influenza Type B (PCR) Negative (NEGATIVE) 04/02/21 13:00 RSV (PCR) Negative (NEGATIVE) 04/02/21 13:00 - Assessment and Plan 1: acute sigmoid diverticulitis with abscess LLQ . localezed peritonitis .. same IN ATB , IVF ,. on clear liquid only .. d/w Pt in details the treatment plan .. .. - Problem Patient Problems: Patient Problems Intra-abdominal abscess (Acute) K65.1 Sigmoid diverticulitis (Acute) K57.32
[2021-04-06] MEDS: ANTIVERT TAB 25 MG PO SCH (21:04)
[2021-04-06] MEDS: CRESTOR TAB 10 MG PO SCH (21:05)
[2021-04-07] MEDS: D5 1/2 NS 1000 ML 1,000 ML IV SCH ×3 (01:12→13:54)
[2021-04-07] MEDS: FLAGYL IV PREMIX 500 MG BAG 500 MG/100 ML BAG IV SCH ×3 (01:13→16:53)
[2021-04-07] MEDS: OFIRMEV IV 1000 MG VIAL 1,000 MG/100 ML VIAL IV PRN ×2 (03:54→19:12)
[2021-04-07] MEDS: ZOSYN VIAL 4.5 GRAMS 4.5 G in NS 100 ML IV + SPIKE MINIBAG* 100 ML IV SCH ×3 (05:57→21:55)
[2021-04-07 06:19] LABS: BASOPHILS # (AUTO) 0.1 X10^3/uL (0.0-0.1); BASOPHILS % (AUTO) 0.3 % (0.2-1.0); EOSINOPHILS # (AUTO) 0.3 x10^3/uL (0.0-0.2); EOSINOPHILS % (AUTO) 1.5 % (0.9-2.9); HEMATOCRIT 38.3 % (42.0-54.0); LYMPHOCYTES # (AUTO) 2.4 X10^3/uL (1.3-2.9); LYMPHOCYTES % (AUTO) 10.7 % (21.0-51.0); MEAN CORPUSCULAR HEMOGLOBIN 29.9 pg (27.0-34.0); MONOCYTES # (AUTO) 2.2 x10^3/uL (0.3-0.8); MONOCYTES % (AUTO) 9.9 % (0.0-13.0); NEUTROPHILS # (AUTO) 17.1 x10^3/uL (2.2-4.8); NEUTROPHILS % (AUTO) 77.6 % (42.0-75.0); PLATELET COUNT 357 X10^3/uL (150.0-450.0); RED BLOOD COUNT 4.36 X10^6/uL (4.7-6.0); RED CELL DISTRIBUTION WIDTH 13.2 % (11.6-16.5)
[2021-04-07 06:32] LABS: ALANINE AMINOTRANSFERASE 22 Units/L (12-78); ALKALINE PHOSPHATASE 103 Units/L (46-116); ASPARTATE AMINO TRANSFERASE 21 Units/L (15-37); BLOOD UREA NITROGEN 10 mg/dL (7-18); CALCIUM 7.9 mg/dL (8.5-10.1); CARBON DIOXIDE 28.6 mmol/L (21-32); CHLORIDE 103 mmol/L (98-107); COR CA(FOR HYPOALB) 9.5 mg/dL (8.5-10.1); CREATININE 1.11 mg/dL (0.70-1.30); SODIUM 137 mmol/L (136-145); TOTAL PROTEIN 5.8 g/dL (6.4-8.2); eGFR NON BLACK RACES > 60 (>60)
[2021-04-07 07:46] LABS: BAND NEUTROPHILS % 4 % (0-10)
[2021-04-07 07:47] LABS: PLATELET MORPHOLOGY COMMENT NORMAL (NORMAL)
[2021-04-07] MEDS: PROTONIX INJ 40 MG VIAL IVP SCH ×2 (08:40→21:43)
[2021-04-07] MEDS: SYNTHROID 112 mcg TAB PO SCH (08:40)
[2021-04-07] MEDS: SINGULAIR TAB 10 MG PO SCH (08:40)
--- NOTE | 2021-04-07 12:11 | DR.PROGNOT ---
Hospital Progress Notes - Progress Note for Day of: Progress Note Date: 04/07/21 - Chief Complaint Chief Complaint: feeling better today with less pain abdominal pain .. no nausea or vomiting. having low grade fever and WBC 22 though . OOB ambulatory .. - Past Medical Family Social History Past Med/Fam/Surg Hx: No changes since H&P Allergies: Allergies No Known Drug Allergies Allergy (Verified 04/02/21 15:22) - Review Of Systems ROS: No change since H&P - Vital Signs Vital Signs: Temperature 98.7 F Pulse Rate [Left Radial] 60 Pulse Rate 74 Respiratory Rate 18 Blood Pressure [Right Arm] 95/61 Blood Pressure [Left Arm] 108/62 Blood Pressure 143/82 O2 Sat by Pulse Oximetry 96 - Physical Exam Oriented: Normal Eyes: Normal Ear: Normal Nose: Normal Throat: Normal Respiratory: Normal Cardiovascular: Normal : Normal GI:Auscultation: Normal GI:Palpation: Normal GI: Tenderness: Diffuse (soft , flat abdomen with moderate tenderness to deep palpation LLQ . BS+), LLQ (diffuse tenderness more around the LLQ with mild rebound .. BS hypoactive ..) Skin: Normal Musculoskeletal: Normal Psychiatric: Normal Mood Description: Calm Affect: Normal Speech Pattern: Clear, Appropriate - Laboratory and Diagnostics Result Diagrams: 04/07/21 05:33 04/07/21 05:33 Labs: 04/02/21 13:02 Blood Blood Culture - Preliminary 04/02/21 12:50 Blood Blood Culture - Preliminary Laboratory WBC 22.0 X10^3/uL (3.6-10.0) H 04/07/21 05:33 RBC 4.36 X10^6/uL (4.7-6.0) L 04/07/21 05:33 Hgb 13.0 g/dL (13.5-18.0) L 04/07/21 05:33 Hct 38.3 % (42.0-54.0) L 04/07/21 05:33 MCV 88.0 fL (80.0-100.0) 04/07/21 05:33 MCH 29.9 pg (27.0-34.0) 04/07/21 05:33 MCHC 34.0 g/dL (33.0-35.0) 04/07/21 05:33 RDW 13.2 % (11.6-16.5) 04/07/21 05:33 Plt Count 357 X10^3/uL (150.0-450.0) 04/07/21 05:33 Plt Count Comment Adequate (ADEQUATE) 04/07/21 05:33 MPV 7.0 fL (7.4-11.0) L 04/07/21 05:33 Neut % (Auto) 77.6 % (42.0-75.0) H 04/07/21 05:33 Lymph % (Auto) 10.7 % (21.0-51.0) L 04/07/21 05:33 [place] % (Auto) 9.9 % (0.0-13.0) 04/07/21 05:33 Eos % (Auto) 1.5 % (0.9-2.9) 04/07/21 05:33 Baso % (Auto) 0.3 % (0.2-1.0) 04/07/21 05:33 Neut # (Auto) 17.1 x10^3/uL (2.2-4.8) H 04/07/21 05:33 Lymph # (Auto) 2.4 X10^3/uL (1.3-2.9) 04/07/21 05:33 [place] # (Auto) 2.2 x10^3/uL (0.3-0.8) H 04/07/21 05:33 Eos # (Auto) 0.3 x10^3/uL (0.0-0.2) H 04/07/21 05:33 Baso # (Auto) 0.1 X10^3/uL (0.0-0.1) 04/07/21 05:33 Absolute Nucleated RBC 0.1 /100WBC 04/07/21 05:33 Total Counted 100 04/07/21 05:33 Neutrophils % (Manual) 71 % (39-76) 04/07/21 05:33 Band Neutrophils % 4 % (0-10) 04/07/21 05:33 Lymphocytes % (Manual) 14 % (13-43) 04/07/21 05:33 Monocytes % (Manual) 10 % (4-9) H 04/07/21 05:33 Eosinophils % (Manual) 1 % (0-6) 04/07/21 05:33 Plt Morphology Comment Normal (NORMAL) 04/07/21 05:33 RBC Morphology Normal (NORMAL) 04/07/21 05:33 PT 15.4 SECONDS (11.8-14.3) 04/02/21 18:10 INR Target Range - 04/02/21 18:10 INR 1.28 (0.8-1.3) 04/02/21 18:10 APTT 31.8 SECONDS (22.9-36.5) 04/02/21 18:10 PTT Comment - 04/02/21 18:10 Sodium 137 mmol/L (136-145) 04/07/21 05:33 Corrected Sodium TNP 04/07/21 05:33 Potassium 3.3 mmol/L (3.5-5.1) L 04/07/21 05:33 Chloride 103 mmol/L (98-107) 04/07/21 05:33 Carbon Dioxide 28.6 mmol/L (21-32) 04/07/21 05:33 BUN 10 mg/dL (7-18) 04/07/21 05:33 Creatinine 1.11 mg/dL (0.70-1.30) 04/07/21 05:33 Est GFR (MDRD) Af Amer > 60 (>60) 04/07/21 05:33 Est GFR (MDRD) Non-Af > 60 (>60) 04/07/21 05:33 Glucose 109 mg/dL (65-99) H 04/07/21 05:33 Calcium 7.9 mg/dL (8.5-10.1) L 04/07/21 05:33 Corrected Calcium 9.5 mg/dL (8.5-10.1) 04/07/21 05:33 Magnesium 2.1 mg/dL (1.7-2.9) 04/03/21 05:43 Total Bilirubin 0.40 mg/dL (0.2-1.0) 04/07/21 05:33 AST 21 Units/L (15-37) 04/07/21 05:33 ALT 22 Units/L (12-78) 04/07/21 05:33 Alkaline Phosphatase 103 Units/L (46-116) 04/07/21 05:33 Total Protein 5.8 g/dL (6.4-8.2) L 04/07/21 05:33 Albumin 2.0 g/dL (3.4-5.0) L 04/07/21 05:33 Globulin 3.8 g/dL (2.5-4.5) 04/07/21 05:33 Albumin/Globulin Ratio 0.5 Ratio (1.1-2.1) L 04/07/21 05:33 SARS-CoV-2 (PCR) Negative (NEGATIVE) 04/02/21 13:00 Influenza Type A (PCR) Negative (NEGATIVE) 04/02/21 13:00 Influenza Type B (PCR) Negative (NEGATIVE) 04/02/21 13:00 RSV (PCR) Negative (NEGATIVE) 04/02/21 13:00 - Assessment and Plan 1: acute sigmoid diverticulitis with abscess LLQ . .. on IV ATB , IVF ,. on clear liquid only .. d/w Pt in details the treatment plan .. - Problem Patient Problems: Patient Problems Intra-abdominal abscess (Acute) K65.1 Sigmoid diverticulitis (Acute) K57.32
[2021-04-07] MEDS: POTASSIUM CHL 40 MEQ/NS 0.45% 500 ML IV PRN (12:44)
[2021-04-07] MEDS: CLEOCIN 600 MG IV PREMIX 600 MG/50 ML BAG IV SCH ×2 (13:15→21:53)
[2021-04-07] MEDS: ZOFRAN INJ 4 MG VIAL IVP PRN (15:20)
[2021-04-07] MEDS: DILAUDID INJ IVP PRN (15:21)
[2021-04-07] MEDS: CRESTOR TAB 10 MG PO SCH (21:43)
[2021-04-07] MEDS: ANTIVERT TAB 25 MG PO SCH (21:43)
[2021-04-08] MEDS: FLAGYL IV PREMIX 500 MG BAG 500 MG/100 ML BAG IV SCH ×2 (02:00→09:27)
[2021-04-08] MEDS: ZOFRAN INJ 4 MG VIAL IVP PRN (04:40)
[2021-04-08] MEDS: DILAUDID INJ IVP PRN ×2 (04:48→14:00)
[2021-04-08] MEDS: ZOSYN VIAL 4.5 GRAMS 4.5 G in NS 100 ML IV + SPIKE MINIBAG* 100 ML IV SCH ×3 (06:00→22:45)
[2021-04-08] MEDS: CLEOCIN 600 MG IV PREMIX 600 MG/50 ML BAG IV SCH ×3 (06:00→21:24)
[2021-04-08 06:16] LABS: BASOPHILS # (AUTO) 0.1 X10^3/uL (0.0-0.1); BASOPHILS % (AUTO) 0.3 % (0.2-1.0); EOSINOPHILS # (AUTO) 0.4 x10^3/uL (0.0-0.2); EOSINOPHILS % (AUTO) 1.9 % (0.9-2.9); HEMOGLOBIN 12.9 g/dL (13.5-18.0); MEAN CORPUSCULAR HEMOGLOBIN 30.1 pg (27.0-34.0); MEAN CORPUSCULAR VOLUME 88.6 fL (80.0-100.0); MEAN PLATELET VOLUME 6.9 fL (7.4-11.0); MONOCYTES # (AUTO) 1.8 x10^3/uL (0.3-0.8); MONOCYTES % (AUTO) 9.2 % (0.0-13.0); NEUTROPHILS # (AUTO) 15.4 x10^3/uL (2.2-4.8); NEUTROPHILS % (AUTO) 78.6 % (42.0-75.0); PLATELET COUNT 429 X10^3/uL (150.0-450.0); RED BLOOD COUNT 4.29 X10^6/uL (4.7-6.0); RED CELL DISTRIBUTION WIDTH 13.1 % (11.6-16.5); WHITE BLOOD COUNT 19.6 X10^3/uL (3.6-10.0)
[2021-04-08] MEDS: D5 1/2 NS 1000 ML 1,000 ML IV SCH (07:15)
[2021-04-08] MEDS: PROTONIX INJ 40 MG VIAL IVP SCH ×2 (09:28→21:24)
[2021-04-08] MEDS: SINGULAIR TAB 10 MG PO SCH (09:28)
[2021-04-08] MEDS: SYNTHROID 112 mcg TAB PO SCH (09:28)
--- NOTE | 2021-04-08 11:06 | DR.PROGNOT ---
Hospital Progress Notes - Progress Note for Day of: Progress Note Date: 04/08/21 - Chief Complaint Chief Complaint: feeling the today with less pain abdominal pain .. no nausea or vomiting. having on ly low grade fever and WBC 19 though . OOB ambulatory .. - Past Medical Family Social History Past Med/Fam/Surg Hx: No changes since H&P Allergies: Allergies No Known Drug Allergies Allergy (Verified 04/02/21 15:22) - Review Of Systems ROS: No change since H&P - Vital Signs Vital Signs: Temperature 99 F Pulse Rate [Left Radial] 69 Pulse Rate 74 Respiratory Rate 20 Blood Pressure [Right Arm] 93/65 Blood Pressure [Left Arm] 108/62 Blood Pressure 143/82 O2 Sat by Pulse Oximetry 95 - Physical Exam Oriented: Normal Eyes: Normal Ear: Normal Nose: Normal Throat: Normal Respiratory: Normal Cardiovascular: Normal : Normal GI:Auscultation: Normal GI:Palpation: Normal GI: Tenderness: Diffuse (soft , flat abdomen with moderate tenderness to deep palpation LLQ . BS+), LLQ (diffuse tenderness more around the LLQ with mild rebound .. BS hypoactive ..) Skin: Normal Musculoskeletal: Normal Psychiatric: Normal Mood Description: Calm Affect: Normal Speech Pattern: Clear, Appropriate - Laboratory and Diagnostics Result Diagrams: 04/08/21 05:43 04/08/21 01:11 Labs: 04/02/21 13:02 Blood Blood Culture - Preliminary 04/02/21 12:50 Blood Blood Culture - Preliminary Laboratory WBC 19.6 X10^3/uL (3.6-10.0) H 04/08/21 05:43 RBC 4.29 X10^6/uL (4.7-6.0) L 04/08/21 05:43 Hgb 12.9 g/dL (13.5-18.0) L 04/08/21 05:43 Hct 38.0 % (42.0-54.0) L 04/08/21 05:43 MCV 88.6 fL (80.0-100.0) 04/08/21 05:43 MCH 30.1 pg (27.0-34.0) 04/08/21 05:43 MCHC 34.0 g/dL (33.0-35.0) 04/08/21 05:43 RDW 13.1 % (11.6-16.5) 04/08/21 05:43 Plt Count 429 X10^3/uL (150.0-450.0) 04/08/21 05:43 Plt Count Comment Adequate (ADEQUATE) 04/07/21 05:33 MPV 6.9 fL (7.4-11.0) L 04/08/21 05:43 Neut % (Auto) 78.6 % (42.0-75.0) H 04/08/21 05:43 Lymph % (Auto) 10.0 % (21.0-51.0) L 04/08/21 05:43 [place] % (Auto) 9.2 % (0.0-13.0) 04/08/21 05:43 Eos % (Auto) 1.9 % (0.9-2.9) 04/08/21 05:43 Baso % (Auto) 0.3 % (0.2-1.0) 04/08/21 05:43 Neut # (Auto) 15.4 x10^3/uL (2.2-4.8) H 04/08/21 05:43 Lymph # (Auto) 2.0 X10^3/uL (1.3-2.9) 04/08/21 05:43 [place] # (Auto) 1.8 x10^3/uL (0.3-0.8) H 04/08/21 05:43 Eos # (Auto) 0.4 x10^3/uL (0.0-0.2) H 04/08/21 05:43 Baso # (Auto) 0.1 X10^3/uL (0.0-0.1) 04/08/21 05:43 Absolute Nucleated RBC 0.0 /100WBC 04/08/21 05:43 Total Counted 100 04/07/21 05:33 Neutrophils % (Manual) 71 % (39-76) 04/07/21 05:33 Band Neutrophils % 4 % (0-10) 04/07/21 05:33 Lymphocytes % (Manual) 14 % (13-43) 04/07/21 05:33 Monocytes % (Manual) 10 % (4-9) H 04/07/21 05:33 Eosinophils % (Manual) 1 % (0-6) 04/07/21 05:33 Plt Morphology Comment Normal (NORMAL) 04/07/21 05:33 RBC Morphology Normal (NORMAL) 04/07/21 05:33 PT 15.4 SECONDS (11.8-14.3) 04/02/21 18:10 INR Target Range - 04/02/21 18:10 INR 1.28 (0.8-1.3) 04/02/21 18:10 APTT 31.8 SECONDS (22.9-36.5) 04/02/21 18:10 PTT Comment - 04/02/21 18:10 Sodium 137 mmol/L (136-145) 04/07/21 05:33 Corrected Sodium TNP 04/07/21 05:33 Potassium 4.0 mmol/L (3.5-5.1) 04/08/21 01:11 Chloride 103 mmol/L (98-107) 04/07/21 05:33 Carbon Dioxide 28.6 mmol/L (21-32) 04/07/21 05:33 BUN 10 mg/dL (7-18) 04/07/21 05:33 Creatinine 1.11 mg/dL (0.70-1.30) 04/07/21 05:33 Est GFR (MDRD) Af Amer > 60 (>60) 04/07/21 05:33 Est GFR (MDRD) Non-Af > 60 (>60) 04/07/21 05:33 Glucose 109 mg/dL (65-99) H 04/07/21 05:33 Calcium 7.9 mg/dL (8.5-10.1) L 04/07/21 05:33 Corrected Calcium 9.5 mg/dL (8.5-10.1) 04/07/21 05:33 Magnesium 2.1 mg/dL (1.7-2.9) 04/03/21 05:43 Total Bilirubin 0.40 mg/dL (0.2-1.0) 04/07/21 05:33 AST 21 Units/L (15-37) 04/07/21 05:33 ALT 22 Units/L (12-78) 04/07/21 05:33 Alkaline Phosphatase 103 Units/L (46-116) 04/07/21 05:33 Total Protein 5.8 g/dL (6.4-8.2) L 04/07/21 05:33 Albumin 2.0 g/dL (3.4-5.0) L 04/07/21 05:33 Globulin 3.8 g/dL (2.5-4.5) 04/07/21 05:33 Albumin/Globulin Ratio 0.5 Ratio (1.1-2.1) L 04/07/21 05:33 SARS-CoV-2 (PCR) Negative (NEGATIVE) 04/02/21 13:00 Influenza Type A (PCR) Negative (NEGATIVE) 04/02/21 13:00 Influenza Type B (PCR) Negative (NEGATIVE) 04/02/21 13:00 RSV (PCR) Negative (NEGATIVE) 04/02/21 13:00 - Assessment and Plan 1: acute sigmoid diverticulitis with stable abscess LLQ . .. on IV ATB ( added Clindamycin yesterday ) , IVF ,. on clear liquid only .. d/w Pt in [place] the treatment plan and possible surgery .. - Problem Patient Problems: Patient Problems Intra-abdominal abscess (Acute) K65.1 Sigmoid diverticulitis (Acute) K57.32
[2021-04-08] MEDS: OFIRMEV IV 1000 MG VIAL 1,000 MG/100 ML VIAL IV PRN (14:00)
[2021-04-08] MEDS: ANTIVERT TAB 25 MG PO SCH (21:23)
[2021-04-08] MEDS: CRESTOR TAB 10 MG PO SCH (21:24)
[2021-04-09] MEDS: FLAGYL IV PREMIX 500 MG BAG 500 MG/100 ML BAG IV SCH ×4 (00:51→17:26)
[2021-04-09] MEDS: D5 1/2 NS 1000 ML 1,000 ML IV SCH ×3 (01:28→21:51)
[2021-04-09] MEDS: DILAUDID INJ IVP PRN ×2 (01:42→21:50)
[2021-04-09] MEDS: CLEOCIN 600 MG IV PREMIX 600 MG/50 ML BAG IV SCH ×3 (05:34→22:45)
[2021-04-09] MEDS: ZOSYN VIAL 4.5 GRAMS 4.5 G in NS 100 ML IV + SPIKE MINIBAG* 100 ML IV SCH ×3 (05:45→22:45)
[2021-04-09 06:28] LABS: BASOPHILS # (AUTO) 0.1 X10^3/uL (0.0-0.1); BASOPHILS % (AUTO) 0.4 % (0.2-1.0); EOSINOPHILS # (AUTO) 0.4 x10^3/uL (0.0-0.2); EOSINOPHILS % (AUTO) 2.2 % (0.9-2.9); LYMPHOCYTES # (AUTO) 1.7 X10^3/uL (1.3-2.9); MEAN CORPUSCULAR HEMOGLOBIN 30.6 pg (27.0-34.0); MEAN CORPUSCULAR HGB CONC 34.3 g/dL (33.0-35.0); MEAN CORPUSCULAR VOLUME 89.5 fL (80.0-100.0); MEAN PLATELET VOLUME 6.9 fL (7.4-11.0); MONOCYTES # (AUTO) 1.6 x10^3/uL (0.3-0.8); MONOCYTES % (AUTO) 9.8 % (0.0-13.0); NEUTROPHILS % (AUTO) 77.6 % (42.0-75.0); PLATELET COUNT 468 X10^3/uL (150.0-450.0); RED BLOOD COUNT 4.24 X10^6/uL (4.7-6.0); WHITE BLOOD COUNT 16.8 X10^3/uL (3.6-10.0)
[2021-04-09 06:32] LABS: BLOOD UREA NITROGEN 6 mg/dL (7-18); CALCIUM 8.2 mg/dL (8.5-10.1); CARBON DIOXIDE 27.8 mmol/L (21-32); CHLORIDE 105 mmol/L (98-107); CREATININE 1.22 mg/dL (0.70-1.30); SODIUM 140 mmol/L (136-145); eGFR NON BLACK RACES > 60 (>60)
--- NOTE | 2021-04-09 08:16 | DR.PROGNOT ---
Hospital Progress Notes - Progress Note for Day of: Progress Note Date: 04/09/21 - Chief Complaint Chief Complaint: feeling better today with abdominal pain .. no nausea or vomiting . no fever last night . WBC 16.8 .lytes normal. OOB ambulatory .. abdomen is soft . flat with only LLQ tenderness . no rebound . good BS - Past Medical Family Social History Past Med/Fam/Surg Hx: No changes since H&P Allergies: Allergies No Known Drug Allergies Allergy (Verified 04/02/21 15:22) - Review Of Systems ROS: No change since H&P - Vital Signs Vital Signs: Temperature 98.9 F Pulse Rate [Right Brachial] 66 Pulse Rate [Left Radial] 67 Pulse Rate 74 Respiratory Rate 20 Blood Pressure [Right Arm] 128/58 Blood Pressure [Left Arm] 108/62 Blood Pressure 143/82 O2 Sat by Pulse Oximetry 95 - Physical Exam Oriented: Normal Eyes: Normal Ear: Normal Nose: Normal Throat: Normal Respiratory: Normal Cardiovascular: Normal : Normal GI:Auscultation: Normal GI:Palpation: Normal GI: Tenderness: Diffuse (soft , flat abdomen with moderate tenderness to deep palpation LLQ . BS+), LLQ (diffuse tenderness more around the LLQ with mild rebound .. BS hypoactive ..) Skin: Normal Musculoskeletal: Normal Psychiatric: Normal Mood Description: Calm Affect: Normal Speech Pattern: Clear, Appropriate - Laboratory and Diagnostics Result Diagrams: 04/09/21 05:13 04/09/21 05:13 Labs: 04/02/21 12:50 Blood Blood Culture - Final 04/02/21 13:02 Blood Blood Culture - Final Laboratory WBC 16.8 X10^3/uL (3.6-10.0) H 04/09/21 05:13 RBC 4.24 X10^6/uL (4.7-6.0) L 04/09/21 05:13 Hgb 13.0 g/dL (13.5-18.0) L 04/09/21 05:13 Hct 38.0 % (42.0-54.0) L 04/09/21 05:13 MCV 89.5 fL (80.0-100.0) 04/09/21 05:13 MCH 30.6 pg (27.0-34.0) 04/09/21 05:13 MCHC 34.3 g/dL (33.0-35.0) 04/09/21 05:13 RDW 13.0 % (11.6-16.5) 04/09/21 05:13 Plt Count 468 X10^3/uL (150.0-450.0) H 04/09/21 05:13 Plt Count Comment Adequate (ADEQUATE) 04/07/21 05:33 MPV 6.9 fL (7.4-11.0) L 04/09/21 05:13 Neut % (Auto) 77.6 % (42.0-75.0) H 04/09/21 05:13 Lymph % (Auto) 10.0 % (21.0-51.0) L 04/09/21 05:13 [place] % (Auto) 9.8 % (0.0-13.0) 04/09/21 05:13 Eos % (Auto) 2.2 % (0.9-2.9) 04/09/21 05:13 Baso % (Auto) 0.4 % (0.2-1.0) 04/09/21 05:13 Neut # (Auto) 13.0 x10^3/uL (2.2-4.8) H 04/09/21 05:13 Lymph # (Auto) 1.7 X10^3/uL (1.3-2.9) 04/09/21 05:13 [place] # (Auto) 1.6 x10^3/uL (0.3-0.8) H 04/09/21 05:13 Eos # (Auto) 0.4 x10^3/uL (0.0-0.2) H 04/09/21 05:13 Baso # (Auto) 0.1 X10^3/uL (0.0-0.1) 04/09/21 05:13 Absolute Nucleated RBC 0.0 /100WBC 04/09/21 05:13 Total Counted 100 04/07/21 05:33 Neutrophils % (Manual) 71 % (39-76) 04/07/21 05:33 Band Neutrophils % 4 % (0-10) 04/07/21 05:33 Lymphocytes % (Manual) 14 % (13-43) 04/07/21 05:33 Monocytes % (Manual) 10 % (4-9) H 04/07/21 05:33 Eosinophils % (Manual) 1 % (0-6) 04/07/21 05:33 Plt Morphology Comment Normal (NORMAL) 04/07/21 05:33 RBC Morphology Normal (NORMAL) 04/07/21 05:33 PT 15.4 SECONDS (11.8-14.3) 04/02/21 18:10 INR Target Range - 04/02/21 18:10 INR 1.28 (0.8-1.3) 04/02/21 18:10 APTT 31.8 SECONDS (22.9-36.5) 04/02/21 18:10 PTT Comment - 04/02/21 18:10 Sodium 140 mmol/L (136-145) 04/09/21 05:13 Corrected Sodium TNP 04/09/21 05:13 Potassium 3.8 mmol/L (3.5-5.1) 04/09/21 05:13 Chloride 105 mmol/L (98-107) 04/09/21 05:13 Carbon Dioxide 27.8 mmol/L (21-32) 04/09/21 05:13 BUN 6 mg/dL (7-18) L 04/09/21 05:13 Creatinine 1.22 mg/dL (0.70-1.30) 04/09/21 05:13 Est GFR (MDRD) Af Amer > 60 (>60) 04/09/21 05:13 Est GFR (MDRD) Non-Af > 60 (>60) 04/09/21 05:13 Glucose 107 mg/dL (65-99) H 04/09/21 05:13 Calcium 8.2 mg/dL (8.5-10.1) L 04/09/21 05:13 Corrected Calcium 9.5 mg/dL (8.5-10.1) 04/07/21 05:33 Magnesium 2.1 mg/dL (1.7-2.9) 04/03/21 05:43 Total Bilirubin 0.40 mg/dL (0.2-1.0) 04/07/21 05:33 AST 21 Units/L (15-37) 04/07/21 05:33 ALT 22 Units/L (12-78) 04/07/21 05:33 Alkaline Phosphatase 103 Units/L (46-116) 04/07/21 05:33 Total Protein 5.8 g/dL (6.4-8.2) L 04/07/21 05:33 Albumin 2.0 g/dL (3.4-5.0) L 04/07/21 05:33 Globulin 3.8 g/dL (2.5-4.5) 04/07/21 05:33 Albumin/Globulin Ratio 0.5 Ratio (1.1-2.1) L 04/07/21 05:33 SARS-CoV-2 (PCR) Negative (NEGATIVE) 04/02/21 13:00 Influenza Type A (PCR) Negative (NEGATIVE) 04/02/21 13:00 Influenza Type B (PCR) Negative (NEGATIVE) 04/02/21 13:00 RSV (PCR) Negative (NEGATIVE) 04/02/21 13:00 - Assessment and Plan 1: acute sigmoid diverticulitis with stable abscess LLQ . .. on IV ATB ( added Clindamycin and Levaquin ) , IVF ,. on clear liquid only .. d/w Pt in details the treatment plan . - Problem Patient Problems: Patient Problems Intra-abdominal abscess (Acute) K65.1 Sigmoid diverticulitis (Acute) K57.32
[2021-04-09] MEDS: SYNTHROID 112 mcg TAB PO SCH (08:24)
[2021-04-09] MEDS: SINGULAIR TAB 10 MG PO SCH (08:24)
[2021-04-09] MEDS: PROTONIX INJ 40 MG VIAL IVP SCH ×2 (08:25→21:52)
[2021-04-09] MEDS: LEVAQUIN PREMIX IV 750 MG 750 MG/150 ML BAG IV SCH (09:30)
[2021-04-09] MEDS: ZOFRAN INJ 4 MG VIAL IVP PRN (12:33)
--- NOTE | 2021-04-09 12:40 | PCM.PROG ---
Progress Note - Progress Note for Day of Date of Exam: 04/09/21 - Subjective Subjective: WAS ADMITTED FOR TREATMENT OF ACUTE SIGMOID DIVERTICULITIS AND AN ANTERIOR PELVIC ABSCESS. TODAY, HE IS ALERT AND ORIENTED, LYING IN BED ON MORNING ROUNDS. HE CONTINUES WITH COMPLAINTS OF MILD LEFT LOWER QUADRANT PAIN. HE DENIES NAUSEA THIS MORNING AND REPORTS THAT HE HAS TOLERATED CLEAR LIQUIDS WELL. HE HAS BEEN AFEBRILE THROUGHOUT THE NIGHT. ON EXAMINATION, HEART IS REGULAR IN RATE AND RHYTHM. BILATERAL LUNGS ARE CLEAR TO AUSCULTATION. ABDOMEN IS ROUND, SOFT, AND NOTED WITH LEFT SIDED ABDOMINAL TENDERNESS. HIS VITALS THIS MORNING ARE: 98.9-66-20-96%-125/58. LABS WERE OBTAINED. ABNORMAL LAB VALUES INCLUDE THE FOLLOWING: WBC 16.8, RBC 4.24, HGB 13.0, HCT 38.0, PLT COUNT 468, BUN 6, GLUCOSE 107, CALCIUM 8.2. HE IS CURRENTLY RECEIVING D51/2NS AT 75 ML/HR, ZOSYN 4.5G IV TID, CLINDAMYCIN 600MG IV Q8H, LEVAQUIN 750MG IV DAILY, FLAGYL 500MG IV Q8H, TYLENOL IV Q6H PRN, DILAUDID 1MG IV Q4H PRN, ZOFRAN 4MG IV Q4H PRN, PROTONIX 40MG IV BID, THE POTASSIUM AND MAGNESIUM PROTOCOLS. HIS HOME MEDICATIONS OF SYNTHROID, ANTIVERT, SINGULAIR, AND CRESTOR WERE RESUMED. , GENERAL SURGEON IS FOLLOWING PATIENT AND RECOMMENDS TO CONTINUE WITH CURRENT PLAN OF CARE TODAY. OTHERWISE, WE WILL FOLLOW UP WITH AM LABS AND CONTINUE TO MONITOR. TIME SPENT ON CLINICAL ASSESSMENT, REVIEWING LABS AND IMAGING, DECISION MAKING, AND DOCUMENTATION GREATER THAN 45 MINUTES. - Past Medical Family Social History Past Med/Fam/Surg Hx: No changes since H&P Allergies: Allergies No Known Drug Allergies Allergy (Verified 04/02/21 15:22) - Review of Systems ROS: No change since H&P - Vital Signs and I&O's Vital Signs: Temperature 98.1 F Pulse Rate [Right Brachial] 66 Pulse Rate [Left Radial] 67 Pulse Rate 74 Respiratory Rate 18 Blood Pressure [Right Arm] 117/60 Blood Pressure [Left Arm] 108/62 Blood Pressure 143/82 O2 Sat by Pulse Oximetry 98 Intake and Output: Intake & Output 04/07/21 04/08/21 04/09/21 04/10/21 11:59 11:59 11:59 11:59 Intake Total 4096 / 4096 3626 / 3626 2345 / 2345 Output Total 600 / 600 Balance 4096 / 4096 3626 / 3626 1745 / 1745 - Physical Exam Oriented: Normal Eyes: Normal Ear: Normal Nose: Normal Throat: Normal Respiratory: Normal Cardiovascular: Normal : Normal Auscultation: Bowel Sounds: Normal Tenderness: LLQ (diffuse tenderness more around the LLQ with mild rebound .. BS hypoactive ..) Skin: Normal Musculoskeletal: Normal Psychiatric: Normal Mood Description: Calm Affect: Normal Speech Pattern: Clear, Appropriate - Laboratory and Diagnostics Result Diagrams: 04/09/21 05:13 04/09/21 05:13 Labs: 04/02/21 12:50 Blood Blood Culture - Final 04/02/21 13:02 Blood Blood Culture - Final Laboratory WBC 16.8 X10^3/uL (3.6-10.0) H 04/09/21 05:13 RBC 4.24 X10^6/uL (4.7-6.0) L 04/09/21 05:13 Hgb 13.0 g/dL (13.5-18.0) L 04/09/21 05:13 Hct 38.0 % (42.0-54.0) L 04/09/21 05:13 MCV 89.5 fL (80.0-100.0) 04/09/21 05:13 MCH 30.6 pg (27.0-34.0) 04/09/21 05:13 MCHC 34.3 g/dL (33.0-35.0) 04/09/21 05:13 RDW 13.0 % (11.6-16.5) 04/09/21 05:13 Plt Count 468 X10^3/uL (150.0-450.0) H 04/09/21 05:13 Plt Count Comment Adequate (ADEQUATE) 04/07/21 05:33 MPV 6.9 fL (7.4-11.0) L 04/09/21 05:13 Neut % (Auto) 77.6 % (42.0-75.0) H 04/09/21 05:13 Lymph % (Auto) 10.0 % (21.0-51.0) L 04/09/21 05:13 [place] % (Auto) 9.8 % (0.0-13.0) 04/09/21 05:13 Eos % (Auto) 2.2 % (0.9-2.9) 04/09/21 05:13 Baso % (Auto) 0.4 % (0.2-1.0) 04/09/21 05:13 Neut # (Auto) 13.0 x10^3/uL (2.2-4.8) H 04/09/21 05:13 Lymph # (Auto) 1.7 X10^3/uL (1.3-2.9) 04/09/21 05:13 [place] # (Auto) 1.6 x10^3/uL (0.3-0.8) H 04/09/21 05:13 Eos # (Auto) 0.4 x10^3/uL (0.0-0.2) H 04/09/21 05:13 Baso # (Auto) 0.1 X10^3/uL (0.0-0.1) 04/09/21 05:13 Absolute Nucleated RBC 0.0 /100WBC 04/09/21 05:13 Total Counted 100 04/07/21 05:33 Neutrophils % (Manual) 71 % (39-76) 04/07/21 05:33 Band Neutrophils % 4 % (0-10) 04/07/21 05:33 Lymphocytes % (Manual) 14 % (13-43) 04/07/21 05:33 Monocytes % (Manual) 10 % (4-9) H 04/07/21 05:33 Eosinophils % (Manual) 1 % (0-6) 04/07/21 05:33 Plt Morphology Comment Normal (NORMAL) 04/07/21 05:33 RBC Morphology Normal (NORMAL) 04/07/21 05:33 PT 15.4 SECONDS (11.8-14.3) 04/02/21 18:10 INR Target Range - 04/02/21 18:10 INR 1.28 (0.8-1.3) 04/02/21 18:10 APTT 31.8 SECONDS (22.9-36.5) 04/02/21 18:10 PTT Comment - 04/02/21 18:10 Sodium 140 mmol/L (136-145) 04/09/21 05:13 Corrected Sodium TNP 04/09/21 05:13 Potassium 3.8 mmol/L (3.5-5.1) 04/09/21 05:13 Chloride 105 mmol/L (98-107) 04/09/21 05:13 Carbon Dioxide 27.8 mmol/L (21-32) 04/09/21 05:13 BUN 6 mg/dL (7-18) L 04/09/21 05:13 Creatinine 1.22 mg/dL (0.70-1.30) 04/09/21 05:13 Est GFR (MDRD) Af Amer > 60 (>60) 04/09/21 05:13 Est GFR (MDRD) Non-Af > 60 (>60) 04/09/21 05:13 Glucose 107 mg/dL (65-99) H 04/09/21 05:13 Calcium 8.2 mg/dL (8.5-10.1) L 04/09/21 05:13 Corrected Calcium 9.5 mg/dL (8.5-10.1) 04/07/21 05:33 Magnesium 2.1 mg/dL (1.7-2.9) 04/03/21 05:43 Total Bilirubin 0.40 mg/dL (0.2-1.0) 04/07/21 05:33 AST 21 Units/L (15-37) 04/07/21 05:33 ALT 22 Units/L (12-78) 04/07/21 05:33 Alkaline Phosphatase 103 Units/L (46-116) 04/07/21 05:33 Total Protein 5.8 g/dL (6.4-8.2) L 04/07/21 05:33 Albumin 2.0 g/dL (3.4-5.0) L 04/07/21 05:33 Globulin 3.8 g/dL (2.5-4.5) 04/07/21 05:33 Albumin/Globulin Ratio 0.5 Ratio (1.1-2.1) L 04/07/21 05:33 SARS-CoV-2 (PCR) Negative (NEGATIVE) 04/02/21 13:00 Influenza Type A (PCR) Negative (NEGATIVE) 04/02/21 13:00 Influenza Type B (PCR) Negative (NEGATIVE) 04/02/21 13:00 RSV (PCR) Negative (NEGATIVE) 04/02/21 13:00 - Plan (1) Intra-abdominal abscess Status: Acute Plan: D51/2NS AT 75 ML/HR, ZOSYN 4.5G IV TID, CLINDAMYCIN 600MG IV Q8H, LEVAQUIN 750MG IV DAILY, FLAGYL 500MG IV Q8H, TYLENOL IV Q6H PRN, DILAUDID 1MG IV Q4H PRN, ZOFRAN 4MG IV Q4H PRN, PROTONIX 40MG IV BID, THE POTASSIUM AND MAGNESIUM PROTOCOLS. RESUME HOME MEDS (2) Sigmoid diverticulitis Status: Acute
[2021-04-09] MEDS: ANTIVERT TAB 25 MG PO SCH (21:51)
[2021-04-09] MEDS: CRESTOR TAB 10 MG PO SCH (21:52)
[2021-04-10] MEDS: FLAGYL IV PREMIX 500 MG BAG 500 MG/100 ML BAG IV SCH ×3 (01:45→16:47)
[2021-04-10] MEDS: CLEOCIN 600 MG IV PREMIX 600 MG/50 ML BAG IV SCH ×3 (05:47→21:54)
[2021-04-10] MEDS: ZOSYN VIAL 4.5 GRAMS 4.5 G in NS 100 ML IV + SPIKE MINIBAG* 100 ML IV SCH ×3 (05:47→21:54)
[2021-04-10 06:15] LABS: BASOPHILS # (AUTO) 0.1 X10^3/uL (0.0-0.1); BASOPHILS % (AUTO) 0.3 % (0.2-1.0); EOSINOPHILS # (AUTO) 0.3 x10^3/uL (0.0-0.2); EOSINOPHILS % (AUTO) 2.1 % (0.9-2.9); HEMOGLOBIN 12.9 g/dL (13.5-18.0); LYMPHOCYTES # (AUTO) 2.7 X10^3/uL (1.3-2.9); LYMPHOCYTES % (AUTO) 16.8 % (21.0-51.0); MEAN CORPUSCULAR HEMOGLOBIN 30.2 pg (27.0-34.0); MEAN CORPUSCULAR HGB CONC 33.9 g/dL (33.0-35.0); MEAN CORPUSCULAR VOLUME 89.1 fL (80.0-100.0); MONOCYTES # (AUTO) 1.6 x10^3/uL (0.3-0.8); MONOCYTES % (AUTO) 10.3 % (0.0-13.0); NEUTROPHILS # (AUTO) 11.2 x10^3/uL (2.2-4.8); NEUTROPHILS % (AUTO) 70.5 % (42.0-75.0); PLATELET COUNT 497 X10^3/uL (150.0-450.0); RED BLOOD COUNT 4.27 X10^6/uL (4.7-6.0); WHITE BLOOD COUNT 15.9 X10^3/uL (3.6-10.0)
[2021-04-10 06:44] LABS: BLOOD UREA NITROGEN 7 mg/dL (7-18); CALCIUM 8.3 mg/dL (8.5-10.1); CARBON DIOXIDE 29.1 mmol/L (21-32); CHLORIDE 105 mmol/L (98-107); CREATININE 1.21 mg/dL (0.70-1.30); SODIUM 141 mmol/L (136-145); eGFR NON BLACK RACES > 60 (>60)
[2021-04-10] MEDS: LEVAQUIN PREMIX IV 750 MG 750 MG/150 ML BAG IV SCH (08:14)
[2021-04-10] MEDS: SINGULAIR TAB 10 MG PO SCH (08:15)
[2021-04-10] MEDS: SYNTHROID 112 mcg TAB PO SCH (08:16)
[2021-04-10] MEDS: D5 1/2 NS 1000 ML 1,000 ML IV SCH ×2 (08:16→16:36)
[2021-04-10] MEDS: PROTONIX INJ 40 MG VIAL IVP SCH ×2 (08:18→21:53)
[2021-04-10] MEDS: DILAUDID INJ IVP PRN ×2 (10:58→19:40)
[2021-04-10] MEDS ORDERED: PERCOCET TAB 5/325 MG PO PRN (12:44)
--- NOTE | 2021-04-10 14:59 | RAD ---
HISTORYPICC placementSTUDYChest AP [id number] is within normal limits in size. The steven are normal. The l ungs are well inflated and free of acute infiltrates. On the initial examination there is a new left- sided PICC line with its tip just barely within the superior vena cava. Subsequently was advanced to the cavoatrial junction. No pleural effusions are identified. Bony thorax is unremarkable.IMPRESSIONL eft PICC tip superior vena cava near the cavoatrial junctionLungs clearElectronically signed by: JEFRY PEÑA (Apr 10, 2021 14:57:59)
--- NOTE | 2021-04-10 15:21 | DR.UPDATE ---
H&P Update History and Physical Update: History and Physical reviewed and patient examined. Changes noted: NO Yes with the following:will place picc H&P Reviewed: Yes Patient was examined?: Yes Procedures (ALL) - Central Line Placement PCM.CLCO: written consent Time out performed: Yes Patient placed pm monitor/pulse ox: Yes prep: mask, gown, gloves, other Centrial line prep: chlorhexidine scrub, sterile drapes applied Local anesthsia used: lidocane 1% Ultrasound used for placement: Yes (left basilic id'd via u/s) Central line lumen ininserted: double (5.5fr arrowpicc) Post procedure: good blood return, all ports aspirated, flushed,capped, sterile dressing applied Post procedure xray: tip oc catheter in good position (cavoatrial jx), no pneumothorax seen Patient tolerated procedure: Yes Complications: none
--- NOTE | 2021-04-10 18:17 | DR.PROGNOT ---
Hospital Progress Notes - Progress Note for Day of: Progress Note Date: 04/10/21 - Chief Complaint Chief Complaint: feeling better today with less abdominal pain .. no nausea or vomiting . no fever last night . WBC 15.8 .lytes normal. OOB ambulatory .. abdomen is soft . flat with only moderate LLQ tenderness . no rebound . good BS .. - Past Medical Family Social History Past Med/Fam/Surg Hx: No changes since H&P Allergies: Allergies No Known Drug Allergies Allergy (Verified 04/02/21 15:22) - Review Of Systems ROS: No change since H&P - Vital Signs Vital Signs: Temperature 98.1 F Pulse Rate [Left Brachial] 57 Pulse Rate [Right Brachial] 60 Pulse Rate [Left Radial] 67 Pulse Rate 74 Respiratory Rate 20 Blood Pressure [Right Arm] 108/56 Blood Pressure [Left Arm] 113/69 Blood Pressure 143/82 O2 Sat by Pulse Oximetry 98 - Physical Exam Oriented: Normal Eyes: Normal Ear: Normal Nose: Normal Throat: Normal Respiratory: Normal Cardiovascular: Normal : Normal GI:Auscultation: Normal GI:Palpation: Normal GI: Tenderness: LLQ (mild LLQ tenderness .. no rebound .. BS+) Skin: Normal Musculoskeletal: Normal Psychiatric: Normal Mood Description: Calm Affect: Normal Speech Pattern: Clear, Appropriate - Laboratory and Diagnostics Result Diagrams: 04/10/21 05:11 04/10/21 05:11 Labs: 04/02/21 12:50 Blood Blood Culture - Final 04/02/21 13:02 Blood Blood Culture - Final Laboratory WBC 15.9 X10^3/uL (3.6-10.0) H 04/10/21 05:11 RBC 4.27 X10^6/uL (4.7-6.0) L 04/10/21 05:11 Hgb 12.9 g/dL (13.5-18.0) L 04/10/21 05:11 Hct 38.0 % (42.0-54.0) L 04/10/21 05:11 MCV 89.1 fL (80.0-100.0) 04/10/21 05:11 MCH 30.2 pg (27.0-34.0) 04/10/21 05:11 MCHC 33.9 g/dL (33.0-35.0) 04/10/21 05:11 RDW 13.0 % (11.6-16.5) 04/10/21 05:11 Plt Count 497 X10^3/uL (150.0-450.0) H 04/10/21 05:11 Plt Count Comment Adequate (ADEQUATE) 04/07/21 05:33 MPV 7.0 fL (7.4-11.0) L 04/10/21 05:11 Neut % (Auto) 70.5 % (42.0-75.0) 04/10/21 05:11 Lymph % (Auto) 16.8 % (21.0-51.0) L 04/10/21 05:11 [place] % (Auto) 10.3 % (0.0-13.0) 04/10/21 05:11 Eos % (Auto) 2.1 % (0.9-2.9) 04/10/21 05:11 Baso % (Auto) 0.3 % (0.2-1.0) 04/10/21 05:11 Neut # (Auto) 11.2 x10^3/uL (2.2-4.8) H 04/10/21 05:11 Lymph # (Auto) 2.7 X10^3/uL (1.3-2.9) 04/10/21 05:11 [place] # (Auto) 1.6 x10^3/uL (0.3-0.8) H 04/10/21 05:11 Eos # (Auto) 0.3 x10^3/uL (0.0-0.2) H 04/10/21 05:11 Baso # (Auto) 0.1 X10^3/uL (0.0-0.1) 04/10/21 05:11 Absolute Nucleated RBC 0.0 /100WBC 04/10/21 05:11 Total Counted 100 04/07/21 05:33 Neutrophils % (Manual) 71 % (39-76) 04/07/21 05:33 Band Neutrophils % 4 % (0-10) 04/07/21 05:33 Lymphocytes % (Manual) 14 % (13-43) 04/07/21 05:33 Monocytes % (Manual) 10 % (4-9) H 04/07/21 05:33 Eosinophils % (Manual) 1 % (0-6) 04/07/21 05:33 Plt Morphology Comment Normal (NORMAL) 04/07/21 05:33 RBC Morphology Normal (NORMAL) 04/07/21 05:33 PT 15.4 SECONDS (11.8-14.3) 04/02/21 18:10 INR Target Range - 04/02/21 18:10 INR 1.28 (0.8-1.3) 04/02/21 18:10 APTT 31.8 SECONDS (22.9-36.5) 04/02/21 18:10 PTT Comment - 04/02/21 18:10 Sodium 141 mmol/L (136-145) 04/10/21 05:11 Corrected Sodium TNP 04/10/21 05:11 Potassium 3.8 mmol/L (3.5-5.1) 04/10/21 05:11 Chloride 105 mmol/L (98-107) 04/10/21 05:11 Carbon Dioxide 29.1 mmol/L (21-32) 04/10/21 05:11 BUN 7 mg/dL (7-18) 04/10/21 05:11 Creatinine 1.21 mg/dL (0.70-1.30) 04/10/21 05:11 Est GFR (MDRD) Af Amer > 60 (>60) 04/10/21 05:11 Est GFR (MDRD) Non-Af > 60 (>60) 04/10/21 05:11 Glucose 97 mg/dL (65-99) 04/10/21 05:11 Calcium 8.3 mg/dL (8.5-10.1) L 04/10/21 05:11 Corrected Calcium 9.5 mg/dL (8.5-10.1) 04/07/21 05:33 Magnesium 2.1 mg/dL (1.7-2.9) 04/03/21 05:43 Total Bilirubin 0.40 mg/dL (0.2-1.0) 04/07/21 05:33 AST 21 Units/L (15-37) 04/07/21 05:33 ALT 22 Units/L (12-78) 04/07/21 05:33 Alkaline Phosphatase 103 Units/L (46-116) 04/07/21 05:33 Total Protein 5.8 g/dL (6.4-8.2) L 04/07/21 05:33 Albumin 2.0 g/dL (3.4-5.0) L 04/07/21 05:33 Globulin 3.8 g/dL (2.5-4.5) 04/07/21 05:33 Albumin/Globulin Ratio 0.5 Ratio (1.1-2.1) L 04/07/21 05:33 SARS-CoV-2 (PCR) Negative (NEGATIVE) 04/02/21 13:00 Influenza Type A (PCR) Negative (NEGATIVE) 04/02/21 13:00 Influenza Type B (PCR) Negative (NEGATIVE) 04/02/21 13:00 RSV (PCR) Negative (NEGATIVE) 04/02/21 13:00 - Assessment and Plan 1: acute sigmoid diverticulitis with stable abscess LLQ . .. on IV ATB ( a dded Clindamycin and Levaquin ) , IVF ,. on clear liquid only .. d/w Pt in details the treatment plan . to place PIC line and IV ATB .. for abdominal CT in am possible d/c - Problem Patient Problems: Patient Problems Intra-abdominal abscess (Acute) K65.1 Sigmoid diverticulitis (Acute) K57.32
[2021-04-10 20:49] LABS: ALANINE AMINOTRANSFERASE 17 Units/L (12-78); ALBUMIN 2.3 g/dL (3.4-5.0); ALKALINE PHOSPHATASE 64 Units/L (46-116); ASPARTATE AMINO TRANSFERASE 23 Units/L (15-37); COR CA(FOR HYPOALB) 9.7 mg/dL (8.5-10.1); TOTAL PROTEIN 5.8 g/dL (6.4-8.2)
[2021-04-10] MEDS: CRESTOR TAB 10 MG PO SCH (21:53)
[2021-04-10] MEDS: ANTIVERT TAB 25 MG PO SCH (21:53)
[2021-04-10 23:32] LABS: ALANINE AMINOTRANSFERASE 10 Units/L (12-78); ALBUMIN 2.4 g/dL (3.4-5.0); ALKALINE PHOSPHATASE 67 Units/L (46-116); ASPARTATE AMINO TRANSFERASE 26 Units/L (15-37); COR CA(FOR HYPOALB) 9.5 mg/dL (8.5-10.1); TOTAL PROTEIN 5.7 g/dL (6.4-8.2)
[2021-04-11] MEDS: FLAGYL IV PREMIX 500 MG BAG 500 MG/100 ML BAG IV SCH ×2 (01:47→08:52)
[2021-04-11] MEDS: CLEOCIN 600 MG IV PREMIX 600 MG/50 ML BAG IV SCH (05:15)
[2021-04-11] MEDS: ZOSYN VIAL 4.5 GRAMS 4.5 G in NS 100 ML IV + SPIKE MINIBAG* 100 ML IV SCH (05:15)
[2021-04-11] MEDS: DILAUDID INJ IVP PRN (05:30)
[2021-04-11 06:42] LABS: BASOPHILS # (AUTO) 0.1 X10^3/uL (0.0-0.1); BASOPHILS % (AUTO) 0.5 % (0.2-1.0); EOSINOPHILS # (AUTO) 0.4 x10^3/uL (0.0-0.2); EOSINOPHILS % (AUTO) 2.9 % (0.9-2.9); HEMATOCRIT 38.9 % (42.0-54.0); HEMOGLOBIN 13.3 g/dL (13.5-18.0); LYMPHOCYTES # (AUTO) 2.1 X10^3/uL (1.3-2.9); LYMPHOCYTES % (AUTO) 16.3 % (21.0-51.0); MEAN CORPUSCULAR HEMOGLOBIN 30.2 pg (27.0-34.0); MEAN CORPUSCULAR HGB CONC 34.2 g/dL (33.0-35.0); MEAN CORPUSCULAR VOLUME 88.5 fL (80.0-100.0); MEAN PLATELET VOLUME 6.8 fL (7.4-11.0); MONOCYTES # (AUTO) 1.2 x10^3/uL (0.3-0.8); MONOCYTES % (AUTO) 9.7 % (0.0-13.0); NEUTROPHILS % (AUTO) 70.6 % (42.0-75.0); PLATELET COUNT 537 X10^3/uL (150.0-450.0); RED BLOOD COUNT 4.39 X10^6/uL (4.7-6.0); WHITE BLOOD COUNT 12.7 X10^3/uL (3.6-10.0)
[2021-04-11 07:50] LABS: ALANINE AMINOTRANSFERASE 18 Units/L (12-78); ALBUMIN 2.2 g/dL (3.4-5.0); ALKALINE PHOSPHATASE 66 Units/L (46-116); ASPARTATE AMINO TRANSFERASE 22 Units/L (15-37); BLOOD UREA NITROGEN 8 mg/dL (7-18); CALCIUM 8.5 mg/dL (8.5-10.1); CARBON DIOXIDE 27.7 mmol/L (21-32); CHLORIDE 105 mmol/L (98-107); COR CA(FOR HYPOALB) 9.9 mg/dL (8.5-10.1); CREATININE 1.18 mg/dL (0.70-1.30); SODIUM 142 mmol/L (136-145); TOTAL PROTEIN 6.2 g/dL (6.4-8.2); eGFR NON BLACK RACES > 60 (>60)
[2021-04-11] MEDS: SYNTHROID 112 mcg TAB PO SCH (08:52)
[2021-04-11] MEDS: PROTONIX INJ 40 MG VIAL IVP SCH (08:52)
[2021-04-11] MEDS: SINGULAIR TAB 10 MG PO SCH (08:52)
--- NOTE | 2021-04-11 09:08 | CT ---
HISTORY:Abdominal pain, follow-up abscessStudy: CT abdomen and pelvis with contrastComparison:CT 04/02/2021, 04/05/2021Technique: Multiple axial images of the abdomen and pelvis were obtained with IV contrast. Oral contrast was administered. Dose reduction techniques including Automated Exposure Control (AEC) and adjustment of mA and kV were utilized.FINDINGS:The lung bases are clear. Stable hypoattenuating lesion in the left hepatic lobe. The spleen, pancreas and adrenal glands are unremarkable. Possible tiny gallstone at the gallbladder neck.No renal calculi or obstructive uropathy.Again demonstrated is multilocular peripherally enhancing collection of fluid and gas in the lower abdomen and upper pelvis with the largest pocket on axial 65 measuring 5.1 x 4.2 by 5.8 centimeters, likely communicating with a more superior multilocular abscess measuring 5.2 x 3.3 centimeters. This is mildly enlarged compared to prior exam. There is surrounding mesenteric edema with reactive inflammation and probably adhesions of the adjacent small bowel and bladder dome which now appears increasingly thickened. There is persistent diverticular inflammation of the sigmoid colon. No definite bladder fistula at this point. No gross free air.The soft tissues and osseous structures are intact . The vascular structures are unremarkable. Shotty mesenteric lymph nodes are present, possibly reactive.IMPRESSION ABDOMEN/PELVIS:Continued interval enlargement of multilocular abscess with worsened inflammation/edema of surrounding bowel loops and urinary bladder concerning for developing adhesions.Electronically signed by: LISA KAHN (Apr 11, 2021 09:07:31)
[2021-04-11] MEDS: LEVAQUIN PREMIX IV 750 MG 750 MG/150 ML BAG IV SCH (10:07)
[2021-04-11] MEDS: D5 1/2 NS 1000 ML 1,000 ML IV SCH (10:07)
--- NOTE | 2021-04-11 10:19 | PCM.PROG ---
Progress Note - Progress Note for Day of Date of Exam: 04/10/21 - Subjective Subjective: WAS ADMITTED FOR TREATMENT OF ACUTE SIGMOID DIVERTICULITIS AND AN ANTERIOR PELVIC ABSCESS. TODAY, HE IS ALERT AND ORIENTED, LYING IN BED ON MORNING ROUNDS. HE CONTINUES WITH COMPLAINTS OF MILD LEFT LOWER QUADRANT PAIN, BUT REPORTS SLIGHT IMPROVEMENT IN SYMPTOMS TODAY. HE DENIES N AUSEA THIS MORNING AND REPORTS THAT HE HAS TOLERATED CLEAR LIQUIDS WELL. HE HAS BEEN AFEBRILE THROUGHOUT THE NIGHT. ON EXAMINATION, HEART IS REGULAR IN RATE AND RHYTHM. BILATERAL LUNGS ARE CLEAR TO AUSCULTATION. ABDOMEN IS ROUND, SOFT, AND NOTED WITH LEFT SIDED ABDOMINAL TENDERNESS. HIS VITALS THIS MORNING ARE: 98.7-57-18-98%-113/69. LABS WERE OBTAINED. ABNORMAL LAB VALUES INCLUDE THE FOLLOWING: WBC 15.9, RBC 4.27, HGB 12.9, HCT 38.0, PLT COUNT 497, CALCIUM 8.3, TOTAL PROTEIN 5.8, ALBUMIN 2.3. HE IS CURRENTLY RECEIVING D51/2NS AT 75 ML/HR, ZOSYN 4.5G IV TID, CLINDAMYCIN 600MG IV Q8H, LEVAQUIN 750MG IV DAILY, FLAGYL 500MG IV Q8H, TYLENOL IV Q6H PRN, DILAUDID 1MG IV Q4H PRN, ZOFRAN 4MG IV Q4H PRN, PROTONIX 40MG IV BID, THE POTASSIUM AND MAGNESIUM PROTOCOLS. HIS HOME MEDICATIONS OF SYNTHROID, ANTIVERT, SINGULAIR, AND CRESTOR WERE RESUMED. WE WILL ADD PERCOCET 5/325MG PO Q4H PRN TODAY. WE WILL REPEAT THE ABDOMEN/PELVIS CT IN THE MORNING. OTHERWISE, WE WILL FOLLOW UP WITH AM LABS AND CONTINUE TO MONITOR. TIME SPENT ON CLINICAL ASSESSMENT, REVIEWING LABS AND IMAGING, DECISION MAKING, AND DOCUMENTATION GREATER THAN 45 MINUTES. - Past Medical Family Social History Past Med/Fam/Surg Hx: No changes since H&P Allergies: Allergies No Known Drug Allergies Allergy (Verified 04/02/21 15:22) - Review of Systems ROS: No change since H&P - Vital Signs and I&O's Vital Signs: Temperature 98.2 F Pulse Rate [Left Brachial] 57 Pulse Rate [Right Brachial] 57 Pulse Rate [Left Radial] 67 Pulse Rate 74 Respiratory Rate 18 Blood Pressure [Right Arm] 100/58 Blood Pressure [Left Arm] 113/69 Blood Pressure 143/82 O2 Sat by Pulse Oximetry 96 Intake and Output: Intake & Output 04/08/21 04/09/21 04/10/21 04/11/21 11:59 11:59 11:59 11:59 Intake Total 3626 / 3626 2345 / 2345 3336 / 3336 2322 / 2322 Output Total 600 / 600 Balance 3626 / 3626 1745 / 1745 3336 / 3336 2322 / 2322 - Physical Exam Oriented: Normal Eyes: Normal Ear: Normal Nose: Normal Throat: Normal Respiratory: Normal Cardiovascular: Normal : Normal Auscultation: Bowel Sounds: Normal Palpation: Normal Tenderness: LLQ (mild LLQ tenderness .. no rebound .. BS+) Skin: Normal Musculoskeletal: Normal Psychiatric: Normal Mood Description: Calm Affect: Normal Speech Pattern: Clear, Appropriate - Laboratory and Diagnostics Result Diagrams: 04/11/21 05:24 04/11/21 05:24 Labs: 04/02/21 12:50 Blood Blood Culture - Final 04/02/21 13:02 Blood Blood Culture - Final Laboratory WBC 12.7 X10^3/uL (3.6-10.0) H 04/11/21 05:24 RBC 4.39 X10^6/uL (4.7-6.0) L 04/11/21 05:24 Hgb 13.3 g/dL (13.5-18.0) L 04/11/21 05:24 Hct 38.9 % (42.0-54.0) L 04/11/21 05:24 MCV 88.5 fL (80.0-100.0) 04/11/21 05:24 MCH 30.2 pg (27.0-34.0) 04/11/21 05:24 MCHC 34.2 g/dL (33.0-35.0) 04/11/21 05:24 RDW 13.0 % (11.6-16.5) 04/11/21 05:24 Plt Count 537 X10^3/uL (150.0-450.0) H 04/11/21 05:24 Plt Count Comment Adequate (ADEQUATE) 04/07/21 05:33 MPV 6.8 fL (7.4-11.0) L 04/11/21 05:24 Neut % (Auto) 70.6 % (42.0-75.0) 04/11/21 05:24 Lymph % (Auto) 16.3 % (21.0-51.0) L 04/11/21 05:24 [place] % (Auto) 9.7 % (0.0-13.0) 04/11/21 05:24 Eos % (Auto) 2.9 % (0.9-2.9) 04/11/21 05:24 Baso % (Auto) 0.5 % (0.2-1.0) 04/11/21 05:24 Neut # (Auto) 9.0 x10^3/uL (2.2-4.8) H 04/11/21 05:24 Lymph # (Auto) 2.1 X10^3/uL (1.3-2.9) 04/11/21 05:24 [place] # (Auto) 1.2 x10^3/uL (0.3-0.8) H 04/11/21 05:24 Eos # (Auto) 0.4 x10^3/uL (0.0-0.2) H 04/11/21 05:24 Baso # (Auto) 0.1 X10^3/uL (0.0-0.1) 04/11/21 05:24 Absolute Nucleated RBC 0.1 /100WBC 04/11/21 05:24 Total Counted 100 04/07/21 05:33 Neutrophils % (Manual) 71 % (39-76) 04/07/21 05:33 Band Neutrophils % 4 % (0-10) 04/07/21 05:33 Lymphocytes % (Manual) 14 % (13-43) 04/07/21 05:33 Monocytes % (Manual) 10 % (4-9) H 04/07/21 05:33 Eosinophils % (Manual) 1 % (0-6) 04/07/21 05:33 Plt Morphology Comment Normal (NORMAL) 04/07/21 05:33 RBC Morphology Normal (NORMAL) 04/07/21 05:33 PT 15.4 SECONDS (11.8-14.3) 04/02/21 18:10 INR Target Range - 04/02/21 18:10 INR 1.28 (0.8-1.3) 04/02/21 18:10 APTT 31.8 SECONDS (22.9-36.5) 04/02/21 18:10 PTT Comment - 04/02/21 18:10 Sodium 142 mmol/L (136-145) 04/11/21 05:24 Corrected Sodium TNP 04/11/21 05:24 Potassium 3.7 mmol/L (3.5-5.1) 04/11/21 05:24 Chloride 105 mmol/L (98-107) 04/11/21 05:24 Carbon Dioxide 27.7 mmol/L (21-32) 04/11/21 05:24 BUN 8 mg/dL (7-18) 04/11/21 05:24 Creatinine 1.18 mg/dL (0.70-1.30) 04/11/21 05:24 Est GFR (MDRD) Af Amer > 60 (>60) 04/11/21 05:24 Est GFR (MDRD) Non-Af > 60 (>60) 04/11/21 05:24 Glucose 96 mg/dL (65-99) 04/11/21 05:24 Calcium 8.5 mg/dL (8.5-10.1) 04/11/21 05:24 Corrected Calcium 9.9 mg/dL (8.5-10.1) 04/11/21 05:24 Magnesium 2.1 mg/dL (1.7-2.9) 04/03/21 05:43 Total Bilirubin 0.20 mg/dL (0.2-1.0) 04/11/21 05:24 AST 22 Units/L (15-37) 04/11/21 05:24 ALT 18 Units/L (12-78) 04/11/21 05:24 Alkaline Phosphatase 66 Units/L (46-116) 04/11/21 05:24 Total Protein 6.2 g/dL (6.4-8.2) L 04/11/21 05:24 Albumin 2.2 g/dL (3.4-5.0) L 04/11/21 05:24 Globulin 4.0 g/dL (2.5-4.5) 04/11/21 05:24 Albumin/Globulin Ratio 0.6 Ratio (1.1-2.1) L 04/11/21 05:24 SARS-CoV-2 (PCR) Negative (NEGATIVE) 04/02/21 13:00 Influenza Type A (PCR) Negative (NEGATIVE) 04/02/21 13:00 Influenza Type B (PCR) Negative (NEGATIVE) 04/02/21 13:00 RSV (PCR) Negative (NEGATIVE) 04/02/21 13:00 - Plan (1) Intra-abdominal abscess Status: Acute Plan: D51/2NS AT 75 ML/HR, ZOSYN 4.5G IV TID, CLINDAMYCIN 600MG IV Q8H, LEVAQUIN 750MG IV DAILY, FLAGYL 500MG IV Q8H, TYLENOL IV Q6H PRN, DILAUDID 1MG IV Q4H PRN, ZOFRAN 4MG IV Q4H PRN, PROTONIX 40MG IV BID, THE POTASSIUM AND MAGNESIUM PROTOCOLS. RESUME HOME MEDS (2) Sigmoid diverticulitis Status: Acute
[2021-04-11 11:41] VITALS: BP 121/61
== END 2021-04-11 13:30 | disposition home health service (06) | DRG 372 ==
LOC: MED/SURG 12:31
PROVIDERS: ADMIT Internal Medicine; ATTEND Internal Medicine
DX: K57.32 Diverticulitis of large intestine without perforation or abscess without bleeding; Z20.822 Contact with and (suspected) exposure to COVID-19; K65.1 Peritoneal abscess